=== PATIENT | male | born 1940 | race Caucasian/White ===

== ENCOUNTER 2020-09-10 12:47 | Outpatient (REF) | payer MEDICARE, SELFPAY ==
[2020-09-10 14:35] LABS: Alanine Aminotransferase 12 U/L (0-40); Albumin Level 3.9 g/dL (3.5-5.0); Alkaline Phosphatase 86 U/L (39-117); Anion Gap 14 (12-20); Aspartate Amino Transferase 11 U/L (5-37); Bilirubin Total 0.3 mg/dL (0.0-1.0); Blood Urea Nitrogen 21 mg/dL (9-16); Calcium 8.2 mg/dL (8.4-10.2); Carbon Dioxide 25 mmol/L (22-29); Chloride 108 mmol/L (96-108); Cholesterol 121 mg/dL; Estimated Glomerular Filt Rate > 60; Glucose Fasting 105 mg/dL (60-99); HDL Cholesterol 40 mg/dL; LDL Cholesterol Calculated 60 mg/dl; Potassium 4.6 mmol/l (3.3-5.1); Sodium 142 mmol/L (135-145); Total Protein 6.6 g/dL (6.5-8.0); Triglycerides 109 mg/dL
[2020-09-10 14:44] LABS: TSH reflex Free T4 0.79 mIU/mL (0.32-4.0)
[2020-09-10 14:50] LABS: Creatinine Urine 189.22 mg/dL; Microalbum/Creatinine Ratio Ur 109.9 ug/mg cr
[2020-09-10 15:23] LABS: Vitamin B12 271 pg/mL (200-900)
[2020-09-10 17:42] LABS: Estimated Average Glucose 134 mg/dL; Hemoglobin A1c % 6.3 %
== END 2020-09-10 12:48 | disposition home or self-care (01) ==
LOC: HO.HMGCLDS 12:47
PROVIDERS: PCP Nurse Practitioner Family; Visit Provider Nurse Practitioner Family
DX: E11.9 Type 2 diabetes mellitus without complications (principal); E53.8 Deficiency of other specified B group vitamins; I10 Essential (primary) hypertension
CPT/HCPCS: 80053; 80061; 82043; 82607; 83036; 84443

== ENCOUNTER 2020-12-28 08:39 | Outpatient (REF) | payer MEDICARE, SELFPAY ==
[2020-12-28 11:58] LABS: Alanine Aminotransferase 17 U/L (0-40); Albumin Level 3.9 g/dL (3.5-5.0); Alkaline Phosphatase 85 U/L (39-117); Anion Gap 13 (12-20); Aspartate Amino Transferase 12 U/L (5-37); Bilirubin Total 0.6 mg/dL (0.0-1.0); Blood Urea Nitrogen 23 mg/dL (9-16); Calcium 8.9 mg/dL (8.4-10.2); Carbon Dioxide 29 mmol/L (22-29); Chloride 105 mmol/L (96-108); Cholesterol 133 mg/dL; Estimated Glomerular Filt Rate > 60; Glucose Fasting 121 mg/dL (60-99); HDL Cholesterol 38 mg/dL; LDL Cholesterol Calculated 71 mg/dl; Potassium 5.4 mmol/L (3.3-5.1); Sodium 142 mmol/L (135-145); Total Protein 6.7 g/dL (6.5-8.0); Triglycerides 123 mg/dL
[2020-12-31 15:45] LABS: Vitamin B12 271 pg/mL (200-900)
== END 2020-12-28 08:40 | disposition home or self-care (01) ==
LOC: HO.HMGCLDS 08:39
PROVIDERS: PCP Nurse Practitioner Family; Visit Provider Nurse Practitioner Family
DX: E53.8 Deficiency of other specified B group vitamins (principal); E11.9 Type 2 diabetes mellitus without complications; E87.5 Hyperkalemia
CPT/HCPCS: 36415; 80053; 80061; 82607

== ENCOUNTER → 2021-01-06 13:23 | Outpatient (REF) | payer MEDICARE, SELFPAY ==
--- NOTE | 2021-01-06 13:36 | ECG_ITS ---
Hook-up date: 2021-01-06 13:52:00 Duration: 42:45:00 Test Indications: Persistent Atrial Fibrillation Medications: 19894 QRS complexes 1769 Ventricular ectopics which represent 1 % of total QRS comp. * Supraventricular ectopics which represent % of total QRS comp. * Paced QRS complexs which represent % of total QRS comp. VENTRICULAR ECTOPY 1709 Isolated 0 Bigeminal Cycles 27 Couplets 2 Runs 6 Beats in Runs 3 Beats LONGEST at 105 BPM at 15:35:35 2021-01-06 3 Beats FASTEST at 121 BPM at 09:31:28 2021-01-07 SUPRAVENTRICULAR ECTOPY * Isolated * Couplets * Runs * Beats in Runs * Beats LONGEST at * BPM at :: -- * Beats FASTEST at * BPM at :: -- HEART RATES 38 MIN at 01:05:22 2021-01-07 66 AVG 141 MAX at 14:05:39 2021-01-06 LONGEST RR 2.6240 secs at 01:26:57 2021-01-07 S-T LEVELS Channel 1 - 128 mm at 13:52:00 2021-01-06 - 128 mm at 13:52:00 2021-01-06 Channel 2 - 128 mm at 13:52:00 2021-01-06 - 128 mm at 13:52:00 2021-01-06 Channel 3 - 128 mm at 03:31:11 -- - 128 mm at 03:31:11 Basic rhythm Atrial fibrillation No significant pauses Frequent Premature ventricular complexes Rate is adequately controlled Patient did not report any symptoms in the diary Referred By: Nelson Pineda Overread By: MARIANGEL GARCIA MD
== END ==
LOC: HO.CARD 13:23
PROVIDERS: Visit Provider Internal Medicine
DX: I48.19 Other persistent atrial fibrillation (principal)
CPT/HCPCS: 93225; 93226

== ENCOUNTER → 2021-01-27 10:16 | Outpatient (BNVA) | payer MEDICARE, SELFPAY | PROVIDERS: PCP Nurse Practitioner Family; Visit Provider Nurse Practitioner Family | DX: I48.20 Chronic atrial fibrillation, unspecified (principal); I11.0 Hypertensive heart disease with heart failure; I50.22 Chronic systolic (congestive) heart failure; I25.10 Atherosclerotic heart disease of native coronary artery without angina pectoris; I42.9 Cardiomyopathy, unspecified; I77.810 Thoracic aortic ectasia; Z98.890 Other specified postprocedural states; Z79.899 Other long term (current) drug therapy | CPT/HCPCS: 93005; 99212 ==

== ENCOUNTER 2021-04-13 09:19 | Outpatient (REF) | payer MEDICARE, SELFPAY ==
[2021-04-13 12:18] LABS: Estimated Average Glucose 148 mg/dL; Hemoglobin A1c % 6.8 %
[2021-04-13 12:38] LABS: TSH reflex Free T4 0.92 uIU/mL (0.32-4.0)
[2021-04-13 12:46] LABS: Folate 7.1 ng/mL (> or = 4.0); Vitamin B12 318 pg/mL (200-900)
[2021-04-13 13:13] LABS: Alanine Aminotransferase 12 U/L (0-40); Albumin Level 3.8 g/dL (3.5-5.0); Alkaline Phosphatase 78 U/L (39-117); Anion Gap 13 (12-20); Aspartate Amino Transferase 12 U/L (5-37); Bilirubin Total 0.8 mg/dL (0.0-1.0); Blood Urea Nitrogen 29 mg/dL (9-16); Carbon Dioxide 26 mmol/L (22-29); Chloride 106 mmol/L (96-108); Cholesterol 172 mg/dL; Estimated Glomerular Filt Rate 59; Glucose Fasting 141 mg/dL (60-99); HDL Cholesterol 43 mg/dL; LDL Cholesterol Calculated 106 mg/dl; Potassium 5.9 mmol/L (3.3-5.1); Sodium 139 mmol/L (135-145); Total Protein 6.6 g/dL (6.5-8.0); Triglycerides 115 mg/dL
== END 2021-04-13 09:20 | disposition home or self-care (01) ==
LOC: HO.HMGCLDS 09:19
PROVIDERS: PCP Nurse Practitioner Family; Visit Provider Nurse Practitioner Family
DX: E11.9 Type 2 diabetes mellitus without complications (principal); E53.8 Deficiency of other specified B group vitamins
CPT/HCPCS: 36415; 80053; 80061; 82607; 82746; 83036; 84443

== ENCOUNTER 2021-04-15 09:29 | Outpatient (REF) | payer MEDICARE, SELFPAY ==
[2021-04-15 12:21] LABS: Anion Gap 11 (12-20); Carbon Dioxide 28 mmol/L (22-29); Chloride 105 mmol/L (96-108); Potassium 5.4 mmol/L (3.3-5.1); Sodium 139 mmol/L (135-145)
[2021-04-15 12:41] LABS: Creatinine Urine 51.99 mg/dL; Microalbum/Creatinine Ratio Ur 65.3 ug/mg cr
== END 2021-04-15 09:30 | disposition home or self-care (01) ==
LOC: HO.HMGCLDS 09:29
PROVIDERS: PCP Nurse Practitioner Family; Visit Provider Nurse Practitioner Family
DX: E87.5 Hyperkalemia (principal); E11.9 Type 2 diabetes mellitus without complications; R80.9 Proteinuria, unspecified
CPT/HCPCS: 36415; 80051; 82043

== ENCOUNTER 2021-04-26 08:18 | Outpatient (REF) | payer MEDICARE, SELFPAY ==
[2021-04-26 11:46] LABS: Anion Gap 14 (12-20); Carbon Dioxide 24 mmol/L (22-29); Chloride 108 mmol/L (96-108); Potassium 4.9 mmol/L (3.3-5.1); Sodium 141 mmol/L (135-145)
== END 2021-04-26 08:19 | disposition home or self-care (01) ==
LOC: HO.HMGCLDS 08:18
PROVIDERS: PCP Nurse Practitioner Family; Visit Provider Nurse Practitioner Family
DX: E87.5 Hyperkalemia (principal)
CPT/HCPCS: 36415; 80051

== ENCOUNTER → 2021-07-09 09:11 | Outpatient (REF) | payer MEDICARE, SELFPAY ==
--- NOTE | 2021-07-09 09:14 | CA_ITS ---
Transthoracic Echocardiogram Patient (Last, First, Middle): Dion Cevallos W Gender: Male Date of : 1940 Age: 81 Procedure Date: 07/09/2021 Procedure Type: Transthoracic Echocardiogram Location: OP Height: 182.88 cm Weight: 100.59 kg BSA: 2.23 m2 Heart Rate: bpm Boiler Repairman: PHU Referring MD: Alyce Pryor COMMUNITY RELATIONS SPECIALIST-Marcello Principal Cloud Architect: Dawson Christine MD Symptoms: I42.9 - Cardiomyopathy, unspecified Study Quality: Good ECG Rhythm: Atrial Fibrillation Conclusions: - 1. [id number] LV systolic dysfunction with underlying regional wall motion abnormality suggestive of ischemic cardiomyopathy 2. Mild biatrial enlargement 3. Trace aortic and mild mitral regurgitation 4. Moderately elevated right ventricular systolic pressure 5. Mildly dilated ascending aorta at 4.2 cm 6. No gross pericardial effusion Findings Left Ventricle Normal left ventricular cavity size. There is normal left ventricular wall thickness. The left ventricular systolic function is mild to moderately decreased. The visually estimated ejection fraction is between 40-45%. Elevated filling pressures. Wall Motion Rest Echo Findings The basal inferior, basal inferoseptal, and basal inferolateral segments are akinetic. All other scored wall segments showed normal motion. Right Ventricle Normal right ventricular cavity size. There is borderline right ventricular systolic function. Atria Mild biatrial enlargement. There is no evidence of interatrial shunt. Aortic Valve There is mild calcification of the aortic valve. There is moderate thickening of the aortic valve. There is no aortic valve stenosis. There is trace (trivial) aortic valve regurgitation. Mitral Valve There is mild anterior and posterior mitral leaflet thickening. There is mild mitral valve regurgitation. There is no mitral valve stenosis. Pulmonic Valve The pulmonic valve was not well visualized. Tricuspid Valve Likely normal tricuspid valve structure and function. There is mild tricuspid valve regurgitation. Mildly elevated right atrial pressure. Moderate pulmonary hypertension is present. Great Vessels The pulmonary artery was not well visualized. There is mild dilatation of the ascending aorta measuring 4.20 cm. Venous The inferior vena cava is mildly dilated. Pericardium/Pleural There is no evidence of pericardial effusion. Prior Study Comparison No significant change compared to prior study dated: 07/09/2020. Measurements 2D Linear Measurements IVSd: 0.87 0.6-0.9/0.6-1.0 cm LVIDd: 6.02 3.9-5.3/4.2-5.9 cm LVIDd Index: 2.70 2.4-3.2/2.2-3.1 cm/m2 LVIDs: 4.61 2.0-3.6 cm LVPWd: 0.84 0.7-1.1 cm Ao Root: 3.80 2.1-3.5 cm LA Diam: 4.30 2.7-3.8/3.0-4.0 cm LAIDs Index: 1.93 1.5-2.3 cm/m2 LV Mass: 254.22 67-162/88-224 g LV Mass Index: 114.00 43-95/49-115 g/m2 LVOT Diam: 2.10 3.0+(-)1.3 cm 2D Systolic Function EF 4C: 47.10 >55% EF 2C: 41.70 >55% EF BiP: 44.80 >55% Mitral Valve E'Lateral: 7.40 E'Medial: 5.77 Aortic Valve AoV Pk Felix: 1.22 AoV Mn Felix: 0.91 AoV VTI: 0.23 AoV Pk Grad: 6.00 Aov Mn Grad: 4.00 AGUSTIN Cont.VTI: 2.11 LVOT LVOT Pk Felix: 0.84 LVOT Mn Felix: 0.53 LVOT VTI: 0.14 LVOT Pk Grad: 3.00 LVOT Mn Grad: 1.00 LVOT Diam: 2.10 LVOT Area: 3.46 Diastolic Function E'Medial: 5.77 E' Laterial: 7.40 Right Ventricle TAPSE (mm): 1.75 TVS' Felix: 8.05 Tricuspid Valve TR Pk Felix: 3.31 TR Pk Grad: 44.00 RA Press: 8.00 RVSP: 52.00 Great Vessels Aorta Ao Root-2D: 3.80 2.0-3.7 cm Ao Asc: 4.20 2.1-3.4 cm Updated in Other Vendor System with Status of Final Dawson Christine MD electronically signed on 07/11/2021 12:00:40 PM with status of Final
== END ==
LOC: HO.CARD 09:11
PROVIDERS: PCP Nurse Practitioner Family; Visit Provider Nurse Practitioner Family
DX: I11.0 Hypertensive heart disease with heart failure (principal); I50.22 Chronic systolic (congestive) heart failure; I48.20 Chronic atrial fibrillation, unspecified; I77.810 Thoracic aortic ectasia; I25.10 Atherosclerotic heart disease of native coronary artery without angina pectoris; I42.9 Cardiomyopathy, unspecified
CPT/HCPCS: 93306

== ENCOUNTER → 2021-07-29 10:09 | Outpatient (BNVA) | payer MEDICARE, SELFPAY | PROVIDERS: PCP Nurse Practitioner Family; Referring Provider Nurse Practitioner Family; Visit Provider Internal Medicine | DX: I11.0 Hypertensive heart disease with heart failure (principal); I50.32 Chronic diastolic (congestive) heart failure; I25.10 Atherosclerotic heart disease of native coronary artery without angina pectoris; I48.19 Other persistent atrial fibrillation; E11.8 Type 2 diabetes mellitus with unspecified complications; C61 Malignant neoplasm of prostate | CPT/HCPCS: 99212 ==

== ENCOUNTER 2021-10-13 07:00 | Outpatient (REF) | payer MEDICARE, SELFPAY ==
[2021-10-13 11:40] LABS: Estimated Average Glucose 154 mg/dL
[2021-10-13 11:54] LABS: Alanine Aminotransferase 16 U/L (0-40); Albumin Level 3.7 g/dL (3.5-5.0); Alkaline Phosphatase 74 U/L (39-117); Anion Gap 14 (12-20); Aspartate Amino Transferase 12 U/L (5-37); Bilirubin Total 0.8 mg/dL (0.0-1.0); Blood Urea Nitrogen 29 mg/dL (9-16); Carbon Dioxide 26 mmol/L (22-29); Chloride 107 mmol/L (96-108); Cholesterol 129 mg/dL; Estimated Glomerular Filt Rate 59; Glucose Random 152 mg/dL (60-115); HDL Cholesterol 35 mg/dL; LDL Cholesterol Calculated 72 mg/dl; Potassium 4.3 mmol/L (3.3-5.1); Sodium 143 mmol/L (135-145); Total Protein 6.6 g/dL (6.5-8.0); Triglycerides 113 mg/dL
== END 2021-10-13 07:01 | disposition home or self-care (01) ==
LOC: HO.HMGCLDS 07:00
PROVIDERS: PCP Nurse Practitioner Family; Visit Provider Nurse Practitioner Family
DX: E11.8 Type 2 diabetes mellitus with unspecified complications (principal); E78.5 Hyperlipidemia, unspecified
CPT/HCPCS: 36415; 80053; 80061; 83036

== ENCOUNTER → 2022-01-24 09:43 | Outpatient (BNVA) | payer MEDICARE, SELFPAY | PROVIDERS: PCP Nurse Practitioner Family; Referring Provider Nurse Practitioner Family; Visit Provider Internal Medicine | DX: I48.19 Other persistent atrial fibrillation (principal); I11.0 Hypertensive heart disease with heart failure; I50.32 Chronic diastolic (congestive) heart failure; I25.10 Atherosclerotic heart disease of native coronary artery without angina pectoris; E11.8 Type 2 diabetes mellitus with unspecified complications | CPT/HCPCS: 93005; 99212 ==

== ENCOUNTER 2022-02-04 07:06 | Outpatient (REF) | payer MEDICARE, SELFPAY ==
[2022-02-04 11:39] LABS: Appearance Urine TURBID; Color Urine OTHER; Glucose Urine UA NEG (NEG); Leukocyte Esterase Urine 2+ (NEG); Nitrite Urine NEG (NEG); UACC Culture Trigger YES; Urine Blood 3+ (NEG); Urine Ketones NEG (NEG); Urine Protein 2+ MG/DL (NEG-TRACE)
[2022-02-04 11:49] LABS: Bacteria Urine TRACE /LPF; WBC Urine 30-49 /HPF (0-4)
[2022-02-04 11:51] LABS: Alanine Aminotransferase 14 U/L (0-40); Albumin Level 3.6 g/dL (3.5-5.0); Alkaline Phosphatase 74 U/L (39-117); Anion Gap 13 (12-20); Aspartate Amino Transferase 12 U/L (5-37); Bilirubin Total 0.5 mg/dL (0.0-1.0); Blood Urea Nitrogen 26 mg/dL (9-16); Calcium 9.3 mg/dL (8.4-10.2); Carbon Dioxide 27 mmol/L (22-29); Chloride 109 mmol/L (96-108); Cholesterol 126 mg/dL; Estimated Glomerular Filt Rate 60; Glucose Fasting 176 mg/dL (60-99); HDL Cholesterol 39 mg/dL; LDL Cholesterol Calculated 67 mg/dl; Potassium 5.6 mmol/L (3.3-5.1); Sodium 143 mmol/L (135-145); Total Protein 6.7 g/dL (6.5-8.0); Triglycerides 104 mg/dL
[2022-02-04 12:00] LABS: Estimated Average Glucose 148 mg/dL; Hemoglobin A1c % 6.8 %
[2022-02-04 12:14] LABS: TSH reflex Free T4 1.57 uIU/mL (0.32-4.0)
[2022-02-04 12:28] LABS: Folate 6.9 ng/mL (> or = 4.0); Vitamin B12 294 pg/mL (200-900)
== END 2022-02-04 07:07 | disposition home or self-care (01) ==
LOC: HO.HMGCLDS 07:06
PROVIDERS: Visit Provider Nurse Practitioner Family
DX: E11.8 Type 2 diabetes mellitus with unspecified complications (principal); E53.8 Deficiency of other specified B group vitamins
CPT/HCPCS: 36415; 80053; 80061; 81001; 82607; 82746; 83036; 84443; 87086

== ENCOUNTER 2022-02-08 09:07 | Outpatient (REF) | payer MEDICARE, SELFPAY ==
[2022-02-08 11:40] LABS: Appearance Urine CLOUDY; Color Urine YELLOW; Glucose Urine UA NEG (NEG); Leukocyte Esterase Urine 3+ (NEG); Nitrite Urine NEG (NEG); PH 6.5 (5.0-8.0); UACC Culture Trigger YES; Urine Blood 3+ (NEG); Urine Ketones NEG (NEG); Urine Protein 1+ MG/DL (NEG-TRACE)
[2022-02-08 11:51] LABS: WBC Urine TNTC /HPF (0-4)
[2022-02-08 11:52] LABS: Amorphous Sediment Urine 1+ /LPF; Bacteria Urine TRACE /LPF; Squamous Epithelial Cell Urine TRACE /LPF
[2022-02-08 11:53] LABS: Anion Gap 13 (12-20); Carbon Dioxide 27 mmol/L (22-29); Chloride 107 mmol/L (96-108); Potassium 5.8 mmol/L (3.3-5.1); Sodium 141 mmol/L (135-145)
== END 2022-02-08 09:08 | disposition home or self-care (01) ==
LOC: HO.HMGCLDS 09:07
PROVIDERS: Visit Provider Nurse Practitioner Family
DX: E87.5 Hyperkalemia (principal)
CPT/HCPCS: 36415; 80051; 81001; 87086

== ENCOUNTER 2022-02-10 07:14 | Outpatient (REF) | payer MEDICARE, SELFPAY ==
[2022-02-10 11:34] LABS: Appearance Urine CLOUDY; Color Urine YELLOW; Glucose Urine UA NEG (NEG); Leukocyte Esterase Urine 3+ (NEG); Nitrite Urine NEG (NEG); UACC Culture Trigger YES; Urine Blood 3+ (NEG); Urine Ketones NEG (NEG); Urine Protein 2+ MG/DL (NEG-TRACE)
[2022-02-10 11:36] LABS: Anion Gap 13 (12-20); Carbon Dioxide 26 mmol/L (22-29); Chloride 105 mmol/L (96-108); Potassium 4.3 mmol/L (3.3-5.1); Sodium 140 mmol/L (135-145)
[2022-02-10 11:51] LABS: RBC Urine TNTC /HPF (0); WBC Urine TNTC /HPF (0-4)
[2022-02-10 11:52] LABS: Bacteria Urine 2+ /LPF; Mucus Urine 2+ /LPF; Squamous Epithelial Cell Urine 1+ /LPF
== END 2022-02-10 07:15 | disposition home or self-care (01) ==
LOC: HO.HMGCLDS 07:14
PROVIDERS: PCP Nurse Practitioner Family; Visit Provider Nurse Practitioner Family
DX: E87.5 Hyperkalemia (principal)
CPT/HCPCS: 36415; 80051; 81001

== ENCOUNTER 2022-03-22 13:26 | Outpatient (REF) | payer MEDICARE, SELFPAY ==
[2022-03-22 14:17] LABS: Appearance Urine CLOUDY; Color Urine YELLOW; Glucose Urine UA NEG (NEG); Leukocyte Esterase Urine 3+ (NEG); Nitrite Urine NEG (NEG); PH 5.5 (5.0-8.0); Specific Gravity - Urine 1.025 (1.005-1.025); Urine Blood 3+ (NEG); Urine Ketones NEG (NEG); Urine Protein 2+ MG/DL (NEG-TRACE)
[2022-03-22 14:25] LABS: RBC Urine TNTC /HPF (0); Squamous Epithelial Cell Urine TRACE /LPF; WBC Urine TNTC /HPF (0-4)
== END 2022-03-22 13:27 | disposition home or self-care (01) ==
LOC: HO.HMGCLDS 13:26
PROVIDERS: PCP Nurse Practitioner Family; Visit Provider Physician Assistant Surgical
DX: N39.0 Urinary tract infection, site not specified (principal)
CPT/HCPCS: 81001; 87086

== ENCOUNTER 2022-03-30 06:37 | Outpatient (REF) | payer MEDICARE, SELFPAY ==
[2022-03-30 11:43] LABS: Appearance Urine CLOUDY; Color Urine YELLOW; Glucose Urine UA NEG (NEG); Leukocyte Esterase Urine 3+ (NEG); Nitrite Urine NEG (NEG); Urine Blood 3+ (NEG); Urine Ketones NEG (NEG); Urine Protein 2+ MG/DL (NEG-TRACE)
[2022-03-30 12:00] LABS: WBC Urine TNTC /HPF (0-4)
[2022-03-30 12:07] LABS: WBC Clumps Urine NOTED
== END 2022-03-30 06:38 | disposition home or self-care (01) ==
LOC: HO.HMGCLDS 06:37
PROVIDERS: PCP Nurse Practitioner Family; Visit Provider Urology
DX: N39.0 Urinary tract infection, site not specified (principal)
CPT/HCPCS: 81001; 87086

== ENCOUNTER 2022-04-22 08:13 | Outpatient (REF) | payer MEDICARE, SELFPAY ==
[2022-04-22 11:31] LABS: Appearance Urine CLOUDY; Color Urine YELLOW; Glucose Urine UA NEG (NEG); Leukocyte Esterase Urine 3+ (NEG); Nitrite Urine NEG (NEG); PH 5.5 (5.0-8.0); UACC Culture Trigger YES; Urine Blood 3+ (NEG); Urine Ketones NEG (NEG); Urine Protein 1+ MG/DL (NEG-TRACE)
[2022-04-22 11:39] LABS: Anion Gap 13 (12-20); Carbon Dioxide 26 mmol/L (22-29); Chloride 108 mmol/L (96-108); Potassium 4.8 mmol/L (3.3-5.1); Sodium 142 mmol/L (135-145)
[2022-04-22 12:03] LABS: Bacteria Urine 2+ /LPF; RBC Urine TNTC /HPF (0); Squamous Epithelial Cell Urine TRACE /LPF; WBC Clumps Urine NOTED; WBC Urine TNTC /HPF (0-4)
== END 2022-04-22 08:14 | disposition home or self-care (01) ==
LOC: HO.HMGCLNP 08:13
PROVIDERS: PCP Nurse Practitioner Family; Visit Provider Nurse Practitioner Family
DX: E87.5 Hyperkalemia (principal); N39.0 Urinary tract infection, site not specified
CPT/HCPCS: 80051; 81001; 87086

== ENCOUNTER 2022-07-22 06:55 | Outpatient (REF) | payer MEDICARE, SELFPAY ==
[2022-07-22 11:24] LABS: MANUAL DIFF FLAG NO
[2022-07-22 11:28] LABS: Basophils Absolute Auto 0.1 X10*3/uL (0.0-0.2); Basophils Percent Auto 0.8 % (0-2); Eosinophils Absolute Auto 0.1 X10*3/uL (0.0-0.4); Eosinophils Percent Auto 1.7 % (0-4); Hematocrit 39.9 % (42.0-52.0); Hemoglobin 12.4 g/dl (14.0-18.0); Imm Gran Abs Auto 0.01 X10*3/uL (0.00-0.03); Imm Gran Pct Auto 0.2 % (0.0-0.4); Lymphocytes Percent Auto 30.7 % (20-40); Mean Corpuscular HGB Conc 31.1 g/dl (31.0-36.0); Mean Corpuscular Hemoglobin 28.9 pg (27.0-33.0); Monocytes Absolute Auto 0.7 X10*3/uL (0.1-1.2); Neutrophils Absolute Auto 3.7 x10*3/uL (2.0-8.3); Neutrophils Percent Auto 56.6 % (45-73); Platelet Count 250 X10*3/uL (160-400); Red Blood Count 4.29 X10*6/uL (4.60-5.80); Red Cell Distribution Width 14.2 % (11.0-16.0); White Blood Count 6.5 X10*3/uL (4.8-10.8)
[2022-07-22 11:33] LABS: Appearance Urine Turbid; Color Urine Yellow; Glucose Urine UA Negative (Negative); Leukocyte Esterase Urine Large (3+) (Negative); Nitrite Urine Positive (Negative); PH 5.5 (5.0-9.0); Specific Gravity - Urine 1.015 (1.005-1.025); UMIC TRIGGER UACC YES; Urine Blood Moderate (2+) (Negative); Urine Ketones Negative (Negative); Urine Protein 30 (1+) mg/dL (Neg-Trace)
[2022-07-22 11:39] LABS: Estimated Average Glucose 148 mg/dL; Hemoglobin A1c % 6.8 %
[2022-07-22 11:45] LABS: Bacteria Urine None Seen (None Seen); Hyaline Casts Urine 0-2 /LPF (0-2); RBC Urine >20 /HPF (0-2); Squamous Epithelial Cell Urine 0-2 /HPF (0-2); UACC Culture Trigger YES; WBC Urine >50 /HPF (0-5)
[2022-07-22 11:59] LABS: Alanine Aminotransferase 9 U/L (0-40); Albumin Level 3.6 g/dL (3.5-5.0); Alkaline Phosphatase 85 U/L (39-117); Anion Gap 16 (12-20); Aspartate Amino Transferase 9 U/L (5-37); Bilirubin Total 0.7 mg/dL (0.0-1.0); Blood Urea Nitrogen 31 mg/dL (9-16); Carbon Dioxide 27 mmol/L (22-29); Chloride 103 mmol/L (96-108); Cholesterol 123 mg/dL; Estimated Glomerular Filt Rate 57; Glucose Fasting 167 mg/dL (60-99); HDL Cholesterol 33 mg/dL; LDL Cholesterol Calculated 71 mg/dl; Potassium 4.4 mmol/L (3.3-5.1); Sodium 142 mmol/L (135-145); Total Protein 6.8 g/dL (6.5-8.0); Triglycerides 96 mg/dL
[2022-07-22 12:03] LABS: TSH reflex Free T4 0.98 uIU/mL (0.32-4.0)
[2022-07-22 12:07] LABS: Creatinine Urine 137.61 mg/dL; Microalbum/Creatinine Ratio Ur 149.6 ug/mg cr
== END 2022-07-22 06:56 | disposition home or self-care (01) ==
LOC: HO.HMGCLDS 06:55
PROVIDERS: PCP Nurse Practitioner Family; Visit Provider Nurse Practitioner Family
DX: E11.8 Type 2 diabetes mellitus with unspecified complications (principal); E87.5 Hyperkalemia
CPT/HCPCS: 36415; 80053; 80061; 81001; 82043; 83036; 84443; 85025; 87086; 87088; 87186

== ENCOUNTER → 2022-08-02 10:01 | Outpatient (BNVA) | payer MEDICARE, SELFPAY | PROVIDERS: PCP Nurse Practitioner Family; Referring Provider Nurse Practitioner Family; Visit Provider Internal Medicine | DX: I48.19 Other persistent atrial fibrillation (principal); I25.10 Atherosclerotic heart disease of native coronary artery without angina pectoris; I11.0 Hypertensive heart disease with heart failure; I50.32 Chronic diastolic (congestive) heart failure; E11.8 Type 2 diabetes mellitus with unspecified complications; Z79.01 Long term (current) use of anticoagulants; Z79.84 Long term (current) use of oral hypoglycemic drugs; Z79.899 Other long term (current) drug therapy | CPT/HCPCS: 99212 ==

== ENCOUNTER 2022-10-19 06:56 | Outpatient (REF) | payer MEDICARE, SELFPAY ==
[2022-10-19 14:47] LABS: Alanine Aminotransferase 11 U/L (0-40); Albumin Level 3.5 g/dL (3.5-5.0); Alkaline Phosphatase 90 U/L (39-117); Anion Gap 12 (12-20); Aspartate Amino Transferase 9 U/L (5-37); Bilirubin Total 0.6 mg/dL (0.0-1.0); Blood Urea Nitrogen 23 mg/dL (9-16); Calcium 8.8 mg/dL (8.4-10.2); Carbon Dioxide 28 mmol/L (22-29); Chloride 109 mmol/L (96-108); Estimated Glomerular Filt Rate > 60; Glucose Random 150 mg/dL (60-115); Potassium 4.6 mmol/L (3.3-5.1); Sodium 144 mmol/L (135-145); Total Protein 6.2 g/dL (6.5-8.0)
== END 2022-10-19 06:57 | disposition home or self-care (01) ==
LOC: HO.HMGCLDS 06:56
PROVIDERS: PCP Nurse Practitioner Family; Visit Provider Nurse Practitioner Family
DX: E87.5 Hyperkalemia (principal)
CPT/HCPCS: 36415; 80053

== ENCOUNTER → 2023-02-14 09:52 | Outpatient (BNVA) | payer MEDICARE, SELFPAY | PROVIDERS: PCP Nurse Practitioner Family; Referring Provider Nurse Practitioner Family; Visit Provider Internal Medicine | DX: I50.32 Chronic diastolic (congestive) heart failure (principal); I25.10 Atherosclerotic heart disease of native coronary artery without angina pectoris; I10 Essential (primary) hypertension; I48.19 Other persistent atrial fibrillation; I49.3 Ventricular premature depolarization; E11.8 Type 2 diabetes mellitus with unspecified complications; Z98.890 Other specified postprocedural states | CPT/HCPCS: 93005; 99212 ==

== ENCOUNTER 2023-04-19 06:57 | Outpatient (REF) | payer MEDICARE, SELFPAY ==
[2023-04-19 11:22] LABS: MANUAL DIFF FLAG NO
[2023-04-19 11:38] LABS: Basophils Percent Auto 0.6 % (0-2); Eosinophils Absolute Auto 0.2 X10*3/uL (0.0-0.4); Hematocrit 38.2 % (42.0-52.0); Hemoglobin 11.8 g/dl (14.0-18.0); Imm Gran Abs Auto 0.02 X10*3/uL (0.00-0.03); Imm Gran Pct Auto 0.3 % (0.0-0.4); Lymphocytes Absolute Auto 2.3 X10*3/uL (1.2-4.9); Lymphocytes Percent Auto 36.3 % (20-40); Mean Corpuscular HGB Conc 30.9 g/dl (31.0-36.0); Mean Corpuscular Hemoglobin 28.9 pg (27.0-33.0); Mean Corpuscular Volume 93.6 fL (80.0-98.0); Monocytes Absolute Auto 0.5 X10*3/uL (0.1-1.2); Monocytes Percent Auto 8.1 % (2-11); Neutrophils Absolute Auto 3.3 x10*3/uL (2.0-8.3); Neutrophils Percent Auto 51.7 % (45-73); Platelet Count 226 X10*3/uL (160-400); Red Blood Count 4.08 X10*6/uL (4.60-5.80); Red Cell Distribution Width 13.5 % (11.0-16.0); White Blood Count 6.4 X10*3/uL (4.8-10.8)
[2023-04-19 12:08] LABS: Appearance Urine Turbid; Color Urine Orange; Glucose Urine UA Negative (Negative); Leukocyte Esterase Urine Large (3+) (Negative); Nitrite Urine Negative (Negative); PH 5.5 (5.0-9.0); Specific Gravity - Urine 1.015 (1.005-1.025); UMIC TRIGGER UACC YES; Urine Blood Large (3+) (Negative); Urine Ketones Negative (Negative); Urine Protein 100 (2+) mg/dL (Neg-Trace)
[2023-04-19 12:13] LABS: Bacteria Urine None Seen (None Seen); Hyaline Casts Urine 0-2 /LPF (0-2); RBC Urine >20 /HPF (0-2); Squamous Epithelial Cell Urine 0-2 /HPF (0-2); UACC Culture Trigger YES; WBC Urine >50 /HPF (0-5)
[2023-04-19 12:18] LABS: Alanine Aminotransferase 10 U/L (0-40); Albumin Level 3.4 g/dL (3.5-5.0); Alkaline Phosphatase 92 U/L (39-117); Anion Gap 11 (12-20); Aspartate Amino Transferase 12 U/L (5-37); Bilirubin Total 0.7 mg/dL (0.0-1.0); Blood Urea Nitrogen 26 mg/dL (9-16); Calcium 9.3 mg/dL (8.4-10.2); Carbon Dioxide 28 mmol/L (22-29); Chloride 108 mmol/L (96-108); Cholesterol 125 mg/dL; Estimated Glomerular Filt Rate 56; Glucose Fasting 136 mg/dL (60-99); HDL Cholesterol 36 mg/dL; LDL Cholesterol Calculated 75 mg/dl; Potassium 4.6 mmol/L (3.3-5.1); Sodium 142 mmol/L (135-145); TSH reflex Free T4 1.45 uIU/mL (0.32-4.0); Total Protein 6.9 g/dL (6.5-8.0); Triglycerides 72 mg/dL
[2023-04-19 12:21] LABS: Vitamin B12 264 pg/mL (200-900)
== END 2023-04-19 06:58 | disposition home or self-care (01) ==
LOC: HO.HMGCLDS 06:57
PROVIDERS: PCP Nurse Practitioner Family; Visit Provider Nurse Practitioner Family
DX: Z00.00 Encounter for general adult medical examination without abnormal findings (principal); E53.8 Deficiency of other specified B group vitamins; R82.90 Unspecified abnormal findings in urine; E11.9 Type 2 diabetes mellitus without complications; I10 Essential (primary) hypertension
CPT/HCPCS: 36415; 80053; 80061; 81001; 81003; 82607; 82746; 84443; 85025; 87086

== ENCOUNTER 2023-07-20 13:20 | Outpatient (AMB) | payer MEDICARE, SELFPAY ==
--- NOTE | 2023-07-20 13:23 | MHC.PC.OV ---
Vital Signs 07/20/23 13:27 Height 5 ft 10 in Weight 209 lb BMI 30.0 BP 118/70 Blood Pressure Location Rt brachial Position Sitting Pulse 92 Pulse Source Pulse Oximeter Pulse Oximetry (%) 97 Oxygen Delivery Method Room Air Intake Visit Reasons: 3 month follow up Allergies Penicillins [PENICILLINS] Allergy (Mild, Verified 07/20/23 13:27) RASH tetanus and diphtheria toxoids [TETANUS & DIPHTHERIA TOXOIDS] Allergy (Mild, Verified 07/20/23 13:27) UNKNOWN ranitidine [Zantac] Allergy (Unknown, Verified 07/20/23 13:27) hives Tobacco use date assessed: 04/18/23 Fall risk assessment: 1 Fall in past year Last assessed Fall Risk: 07/20/23 HPI 3 month follow up HPI Details Pt is a diabetic, on an KIKI and a statin. A1C in office today is 6.6. Due for microalbumin, will order. Denies polyuria, polydipsia, does report neuropathy. Pt denies any signs and symptoms of hypoglycemia and does know how to correct it. Eye exam is scheduled. HTN: Blood pressure is stable, managed with furosemide 20mg, lisinopril 5mg, and metoprolol 100mg in the morning and 50mg at night. Denies chest pain, shortness of breath, headache, dizziness, and blurred vision. 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 Chronic systolic heart failure Ascending aorta dilatation Cardiomyopathy Microalbuminuria CAD (coronary artery disease) Chronic a-fib Atherosclerosis Depression Ureteral calculi CHF (congestive heart failure) Prostate CA Tremor Aneurysm of thoracic aorta Dyslipidemia Pulmonary embolism Diabetes HTN (hypertension) Surgical History Hx of cardiac cath History of rhinoplasty Family History Father Unknown family medical history Mother Unknown family medical history Sister Mental health disorder Social History Housing: House Alcohol intake: never Patient Tobacco Use Status: Former Tobacco user Years Smoked: 30 years ago e-Cigarette/Vaping Use: Never Used Second Hand Smoke Exposure: No service: No Current occupational status: retired Current occupational exposures/hazards: No Cognitive needs: No Hearing needs: No Vision needs: Yes Questionnaire Thrive Questionnaire Date Thrive assessed: 10/14/21 ALICIA-7 AMB Questionnaire ALICIA-7 Date ALICIA - 7 assessed: 10/14/21 Source: Developed by Drs. Vj Oliva, Claire Lozano, Alex Amaro and colleagues, with an educational marc from [employer]. Review of Systems Const Reports as per HPI Physical exam (Primary Care) Vital Signs: Last Vital Signs Pulse 92 07/20/23 13:27 BP 118/70 07/20/23 13:27 Pulse Ox 97 07/20/23 13:27 Oxygen Delivery Method Room Air 07/20/23 13:27 BMI result Body Mass Index 30.0 Tobacco/Smoking Status: Tobacco use Status Tobacco use date assessed 04/18/23 07/20/23 13:26 Patient Tobacco Use Status Former Tobacco user 07/20/23 13:26 e-Cigarette/Vaping Use Never Used 07/20/23 13:26 Thrive Assessment: Date of Thrive Assessment Date Thrive assessed 10/14/21 07/20/23 13:26 Const General: cooperative Orientation/consciousness: patient oriented x3 Resp Effort & Inspection: normal respiratory effort Auscultation: clear to auscultation bilaterally Cardio Rate: regular rate Rhythm: abnormal rhythm irregularly irregular Heart sounds: S1 normal heart sound present and S2 normal heart sound present Neuro General: patient oriented x3 Extrem Other: bilat feet: + sensation with use of monofilament Right lower extremity: edema (trace) Left lower extremity: edema (trace) Psych Appearance: grossly normal Mental Status: mental status grossly normal Speech and movement: Normal speech and movement present Affect: normal affect Attitude: cooperative Thought process: Normal thought process present Thought content: Normal thought content present Insight: Good insight present (Psych) Judgement: Good judgement present (Psych) Results AMB Hemoglobin A1c AMB Hemoglobin A1c 6.6 % Last Edit by ZOILA Mendiola on 07/20/23 13:54 Results Reviewed Results Reviewed: Laboratory Last Values Hgb A1c (Clinic) 6.6 % (4.0-6.0) H 07/20/23 13:53 Assessment and Plan Assessment & Plan (1) Diabetes: Code(s): E11.9 - Type 2 diabetes mellitus without complications Plan: Labs ordered (2) HTN (hypertension): Code(s): I10 - Essential (primary) hypertension Plan: Labs ordered (3) B12 deficiency: Code(s): E53.8 - Deficiency of other specified B group vitamins Plan: Labs ordered Plan The patient agreed to the use of a biomedical specialist for this encounter. Scribed for ISA Palacio-CHONG by Nicole Bunch biomedical specialist, on 07/20/2023 at 13:45 EST. Orders: Orders Microalbumin, Random (w Creat) Today E11.9 - Type 2 diabetes mellitus without complications Complete Blood Count Auto Diff Today E11.9 - Type 2 diabetes mellitus without complications, I10 - Essential (primary) hypertension TSH reflex Free T4 Today E11.9 - Type 2 diabetes mellitus without complications, I10 - Essential (primary) hypertension Vitamin B12 and Folate Today E53.8 - Deficiency of other specified B group vitamins Comprehensive [place]. Panel Fast Today E11.9 - Type 2 diabetes mellitus without complications, I10 - Essential (primary) hypertension Lipid Panel Today E11.9 - Type 2 diabetes mellitus without complications, I10 - Essential (primary) hypertension UA CC w/rflx Micro + Cult Today E11.9 - Type 2 diabetes mellitus without complications, I10 - Essential (primary) hypertension AMB Hemoglobin A1c Today Z13.9 - Encounter for screening, unspecified Coding Level of Care Code Est Pt Level 3 (04043) Diagnoses Diabetes E11.9 HTN (hypertension) I10 B12 deficiency E53.8
[2023-07-20 13:27] VITALS: BP 118/70; PULSE 92; O2SAT 97
== END 2023-07-20 14:09 | disposition home or self-care (01) ==
PROVIDERS: PCP Nurse Practitioner Family; Visit Provider Nurse Practitioner Family
DX: E11.9 Type 2 diabetes mellitus without complications (principal); I10 Essential (primary) hypertension; E53.8 Deficiency of other specified B group vitamins
CPT/HCPCS: 83036; 99213

== ENCOUNTER → 2023-07-26 09:00 | Outpatient (REF) | payer MEDICARE, SELFPAY ==
--- NOTE | 2023-07-26 09:04 | CA_ITS ---
Transthoracic Echocardiogram Patient (Last, First, Middle): Dion Cevallos W Gender: Male Date of : 1940 Age: 83 Procedure Date: 07/26/2023 Procedure Type: Transthoracic Echocardiogram Location: OP Height: 180.34 cm Weight: 92.99 kg BSA: 2.13 m2 Heart Rate: bpm BP: 110 / 60 mmHg Veterinary Radiologist: TO Referring MD: Nelson Pineda MD Symptoms: I50.32 - Chronic diastolic (congestive) heart failure Study Quality: Fair ECG Rhythm: Atrial Fibrillation Conclusions: - The left ventricular systolic function is mild to moderately decreased. The calculated ejection fraction is 42% by biplane method. - The basal inferior and basal inferolateral segments are akinetic. - No obvious valvular pathology seen on this study. - Moderate pulmonary hypertension is present. - There is mild dilatation of the ascending aorta measuring 4.30 cm. Findings Left Ventricle Mildly increased left ventricular cavity size. There is normal left ventricular wall thickness. The left ventricular systolic function is mild to moderately decreased. The calculated ejection fraction is 42% by biplane method. There is evidence of regional wall motion abnormalities. Diastolic function is indeterminate on the basis of available data. Wall Motion Rest Echo Findings The basal inferior and basal inferolateral segments are akinetic. Right Ventricle Normal right ventricular cavity size. There is mildly decreased right ventricular systolic function. Atria Mild biatrial enlargement. Aortic Valve There is a normal trileaflet aortic valve. There is mild calcification of the aortic valve. There is no aortic valve stenosis. There is trace (trivial) aortic valve regurgitation. Mitral Valve The mitral valve appears normal. There is mild mitral valve regurgitation. There is no mitral valve stenosis. Pulmonic Valve The pulmonic valve is likely normal. Tricuspid Valve Normal tricuspid valve structure. There is mild tricuspid valve regurgitation. Moderate pulmonary hypertension is present. Great Vessels There is mild dilatation of the ascending aorta measuring 4.30 cm. Venous The inferior vena cava is dilated and collapses less than 50% with inspiration. Pericardium/Pleural There is a trivial pericardial effusion. Prior Study Comparison No significant change compared to prior study dated: 07/09/2021. Recommendations, Care & Conclusions No obvious valvular pathology seen on this study. Measurements 2D Linear Measurements IVSd: 0.80 0.6-0.9/0.6-1.0 cm LVIDd: 6.00 3.9-5.3/4.2-5.9 cm LVIDd Index: 2.82 2.4-3.2/2.2-3.1 cm/m2 LVIDs: 5.10 2.0-3.6 cm LVPWd: 0.90 0.7-1.1 cm LA Diam: 4.10 2.7-3.8/3.0-4.0 cm LAIDs Index: 1.92 1.5-2.3 cm/m2 LV Mass: 250.15 67-162/88-224 g LV Mass Index: 117.44 43-95/49-115 g/m2 LVOT Diam: 2.30 3.0+(-)1.3 cm 2D Systolic Function EF 4C: 44.50 >55% EF 2C: 40.80 >55% EF BiP: 42.10 >55% Mitral Valve MV Pk E: 0.86 MV Decel Time: 155.00 E'Lateral: 6.53 E'Medial: 5.11 E/E' Med: 16.80 E/E' Lat: 13.20 PHT: 45.00 MVA PHT: 4.89 Decel [place]: 5.55 Aortic Valve AoV Pk Felix: 1.27 AoV Mn Felix: 0.91 AoV VTI: 0.26 AoV Pk Grad: 6.00 Aov Mn Grad: 4.00 AGUSTIN Cont.VTI: 1.82 LVOT LVOT Pk Felix: 0.52 LVOT Mn Felix: 0.36 LVOT VTI: 0.11 LVOT Pk Grad: 1.00 LVOT Mn Grad: 1.00 LVOT Diam: 2.30 LVOT Area: 4.15 Diastolic Function MV Pk E: 0.86 E'Medial: 5.11 E/E' Med: 16.80 E' Laterial: 6.53 E/E' Lat: 13.20 Right Ventricle TAPSE (mm): 12.60 TVS' Felix: 7.22 Tricuspid Valve TR Pk Felix: 3.42 TR Pk Grad: 47.00 RA Press: 15.00 RVSP: 62.00 Great Vessels Aorta Sinus of Valsalva: 3.70 2.0-3.[address] [place]: 3.10 1.7-3.4 cm Ao Asc: 4.30 2.1-3.4 cm Ao Arch: 3.60 Updated in Other Vendor System with Status of Final Nelson Pineda MD electronically signed on 07/27/2023 11:25:48 AM with status of Final
== END ==
LOC: HO.CARD 09:00
PROVIDERS: PCP Nurse Practitioner Family; Visit Provider Internal Medicine
DX: I50.32 Chronic diastolic (congestive) heart failure (principal)
CPT/HCPCS: 93306

== ENCOUNTER → 2023-07-26 09:04 | Outpatient (BNV) | payer MEDICARE, SELFPAY | PROVIDERS: PCP Nurse Practitioner Family; Visit Provider Internal Medicine | DX: I34.0 Nonrheumatic mitral (valve) insufficiency (principal); I36.1 Nonrheumatic tricuspid (valve) insufficiency | CPT/HCPCS: 93306 ==

== ENCOUNTER 2023-08-14 11:55 | Outpatient (AMB) | payer MEDICARE, SELFPAY ==
[2023-08-14 13:51] VITALS: BP 112/66; PULSE 68; O2SAT 97; BMI 30.4
--- NOTE | 2023-08-14 13:51 | MHC.OFFWIV ---
Intake Vital Signs 08/14/23 13:51 Height 5 ft 10 in Weight 212 lb BMI 30.4 BP 112/66 Blood Pressure Location Rt brachial Position Sitting Pulse 68 Pulse Source Pulse Oximeter Pulse Oximetry (%) 97 Oxygen Delivery Method Room Air Intake Visit Reasons: EP Cough, Runny nose (masked) Lobby Intake Note: Pt is here today for a walk in visit. Pt c/o cough congestion a lot of mucus for a week. Patient Tobacco Use Status: Former Tobacco user Allergies Penicillins [PENICILLINS] Allergy (Mild, Verified 08/14/23 14:31) RASH tetanus and diphtheria toxoids [TETANUS & DIPHTHERIA TOXOIDS] Allergy (Mild, Verified 08/14/23 14:31) UNKNOWN ranitidine [Zantac] Allergy (Unknown, Verified 08/14/23 14:31) hives Medication List - Last Reconciled 08/14/23 by Hayden Donahue MD apixaban (Eliquis) 5 mg PO BID atorvastatin 40 mg PO DAILY blood sugar diagnostic (OneTouch Ultra Test strips) test blood sugar daily blood sugar diagnostic (OneTouch Ultra Test strips) Use to check blood sugar once a day or as needed for s/s hypo/hyperglycemia blood-glucose meter (AlticastTouch Ultra2 Meter) Use to check blood sugar once a day or as needed for s/s hypo/hyperglycemia cyanocobalamin (vitamin B-12) (Vitamin B-12) 1,000 mcg PO DAILY PRN diabetic supplies, [place]. Diabetic Shoes DX: E11.9, E11.59 [extra depth Orthopedic shoes (1 pair) wt customized Heat-molded Multi-density Innersoles (3 Pairs) As directed] furosemide 20 mg PO DAILY lancets (AlticastTouch Delica Plus Lancet) Use to check blood sugar once a day or as needed for s/s hypo/hyperglycemia lancets (AlticastTouch UltraSoft Lancets) Check sugar once a day lisinopril 5 mg PO DAILY lorazepam (Ativan) 0.5 mg (1/2 x 1 mg) PO DAILY PRN 5 days metformin 500 mg PO .PM 90 days metformin 1,000 mg PO .AM 90 days metoprolol succinate ER 50 mg PO .P.M 90 days metoprolol succinate ER 100 mg PO .am 90 days sertraline 25 mg PO DAILY 90 days tamsulosin 0.4 mg PO QPM HPI EP Cough, Runny nose (masked) Lobby HPI Details 83-year-old male presents to the office for a sick visit. His daughter is accompanying him on this visit. Patient is complaining of cough in the last week. Spasmodic cough with shortness of breath. No fevers or chills. 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 Chronic systolic heart failure Ascending aorta dilatation Cardiomyopathy Microalbuminuria CAD (coronary artery disease) Chronic a-fib Atherosclerosis Depression Ureteral calculi CHF (congestive heart failure) Prostate CA Tremor Aneurysm of thoracic aorta Dyslipidemia Pulmonary embolism Diabetes HTN (hypertension) Surgical History Hx of cardiac cath History of rhinoplasty Family History Father Unknown family medical history Mother Unknown family medical history Sister Mental health disorder Social History Housing: House Alcohol intake: never Patient Tobacco Use Status: Former Tobacco user Years Smoked: 30 years ago e-Cigarette/Vaping Use: Never Used Second Hand Smoke Exposure: No service: No Current occupational status: retired Current occupational exposures/hazards: No Cognitive needs: No Hearing needs: No Vision needs: Yes Physical Exam Vital Signs: Last Vital Signs Pulse 68 08/14/23 13:51 BP 112/66 08/14/23 13:51 Pulse Ox 97 08/14/23 13:51 Oxygen Delivery Method Room Air 08/14/23 13:51 BMI result Body Mass Index 30.4 Const General: cooperative and healthy appearing Nutritional Appearance: well nourished Orientation/consciousness: patient oriented x3 Limitations: no limitations HEENT Head: Yes normal to inspection Eyes General: appearance normal, both eyes and all related structures Neck Neck: Yes normal visual inspection Chest Chest palpation & inspection: normal palpation of entire chest wall Resp Other: Diminished breath sounds bilaterally. Effort & Inspection: normal respiratory effort Neuro General: patient oriented x3 Assessment & Plan Assessment & Plan (1) Pneumonia: Code(s): J18.9 - Pneumonia, unspecified organism Plan: Possible right lower lobe infiltrate. Cough medication and antibiotic called in. If symptoms do not improve to follow-up here. Plan X-ray images personally reviewed by me Orders: Orders XR chest 2V Today R05.9 - Cough, unspecified Medications: New prednisone 60 mg (3 x 20 mg) PO DAILY 9 tabs 0RF codeine-guaifenesin 10-100 mg/5 mL 5 mL PO Q6H PRN 120 mL 0RF allergy symptoms azithromycin take 500 mg today (day 1), then 250 mg for 4 days (days 2-5) PO 6 tabs 0RF Coding Level of Care Code Est Pt Level 4 (31568) Diagnoses Pneumonia J18.9
== END 2023-08-14 15:07 | disposition home or self-care (01) ==
PROVIDERS: PCP Nurse Practitioner Family; Visit Provider Internal Medicine
DX: J18.9 Pneumonia, unspecified organism (principal)
CPT/HCPCS: 99214

== ENCOUNTER 2023-08-14 14:31 | Outpatient (REF) | payer MEDICARE, SELFPAY | END 2023-08-14 14:32 | disposition home or self-care (01) | LOC: HO.HMGCX 14:31 | PROVIDERS: PCP Nurse Practitioner Family; Visit Provider Internal Medicine | DX: R05.9 Cough, unspecified (principal) | CPT/HCPCS: 71046 ==

== ENCOUNTER 2023-08-22 12:05 | Outpatient (AMB) | payer MEDICARE, SELFPAY ==
[2023-08-22 13:05] VITALS: BP 110/70; PULSE 80; TEMP 36.6; O2SAT 97; BMI 30.4
--- NOTE | 2023-08-22 13:05 | AM.OFFWIN_ITS ---
Intake Vital Signs 08/22/23 13:05 Height 5 ft 10 in Weight 212 lb BMI 30.4 BP 110/70 Blood Pressure Location Lt brachial Position Sitting Pulse 80 Pulse Source Pulse Oximeter Temp 97.9 F Temp Source Temporal Artery Scan Pulse Oximetry (%) 97 Intake Visit Reasons: EP, cough, congestion (masked) Intake Note: pt is here for c/o cough and congestion Patient Tobacco Use Status: Former Tobacco user Allergies Penicillins [PENICILLINS] Allergy (Mild, Verified 08/22/23 13:06) RASH tetanus and diphtheria toxoids [TETANUS & DIPHTHERIA TOXOIDS] Allergy (Mild, Verified 08/22/23 13:06) UNKNOWN ranitidine [Zantac] Allergy (Unknown, Verified 08/22/23 13:06) hives Do you need a note to return to daycare/school/sports/work: Yes HPI HPI Comments History of Present Illness Details 83-year-old male history of diabetes chr onic AFib Eliquis he has seen the presents for re-evaluation. Patient was seen in the walk-in last week drug use with probable pneumonia discharged on prednisone and azithromycin. Patient states he feels the same as he did last week after the course of medications. He endorses productive cough chills wheezing. 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 Chronic systolic heart failure Ascending aorta dilatation Cardiomyopathy Microalbuminuria CAD (coronary artery disease) Chronic a-fib Atherosclerosis Depression Ureteral calculi CHF (congestive heart failure) Prostate CA Tremor Aneurysm of thoracic aorta Dyslipidemia Pulmonary embolism Diabetes HTN (hypertension) Surgical History Hx of cardiac cath History of rhinoplasty Family History Father Unknown family medical history Mother Unknown family medical history Sister Mental health disorder Social History Housing: House Alcohol intake: never Patient Tobacco Use Status: Former Tobacco user Years Smoked: 30 years ago e-Cigarette/Vaping Use: Never Used Second Hand Smoke Exposure: No service: No Current occupational status: retired Current occupational exposures/hazards: No Cognitive needs: No Hearing needs: No Vision needs: Yes Review of Systems Resp Reports chest congestion, Reports cough and Reports excessive phlegm production Physical Exam Vital Signs: Last Vital Signs Temp 97.9 F 08/22/23 13:05 Pulse 80 08/22/23 13:05 BP 110/70 08/22/23 13:05 Pulse Ox 97 08/22/23 13:05 BMI result Body Mass Index 30.4 Const General: healthy appearing, comfortable, no acute distress and alert Orientation/consciousness: patient oriented x3 Limitations: no limitations HEENT Head: Yes normal to inspection Ears: hearing grossly normal bilaterally Resp Other: Rhonchi heard in the right lower base Effort & Inspection: normal respiratory effort and able to speak in complete sentences Cardio Rate: regular rate Skin General skin exam: no rashes or lesions noted Neuro General: patient oriented x3 Extrem General: Yes normal to inspection Assessment & Plan Assessment & Plan (1) Pneumonia: Code(s): J18.9 - Pneumonia, unspecified organism Qualifiers: Pneumonia type: due to unspecified organism Laterality: unspecified laterality Lung location: unspecified part of lung Qualified Code(s): J18.9 - Pneumonia, unspecified organism Plan Chest x-ray on my interpretation shows no acute pathology. However given patient's age and risk factors s patient was initially prescribed azithromycin given level of assistance-reasonable short course of doxycycline superimposed pneumonia Discharge instructions, follow up and treatment are discussed with patient in my usual fashion. Alternatives in treatment are also discussed. The patient will return for worsening symptoms or as needed. Advised that any labs/imaging ordered will be followed up on and contact made if further treatment needed. Counseled that patient's condition may require further evaluation and/or treatment. Symptoms of concern for worsening disorder discussed in detail in my customary manner. Patient does verbalize understanding of the plan, there are no apparent barriers to communication. The patient is given the opportunity to ask questions and have them answered to his/her satisfaction Orders: Orders XR chest 2V Today R05.9 - Cough, unspecified Medications: New albuterol sulfate 90 mcg/actuation 2 puffs inhalation Q6H PRN 6.7 grams 0RF shortness of breath or wheezing doxycycline hyclate 100 mg PO BID 5 days 10 caps 0RF Refilled codeine-guaifenesin 10-100 mg/5 mL 5 mL PO Q6H PRN 120 mL 0RF allergy symptoms Coding Level of Care Code Est Pt Level 4 (93246) Diagnoses Pneumonia due to infectious organism, unspecified laterality, unspecified part of lung J18.9 Pneumonia type: due to unspecified organism Laterality: unspecified laterality Lung location: unspecified part of lung
== END 2023-08-22 14:04 | disposition home or self-care (01) ==
PROVIDERS: PCP Nurse Practitioner Family; Visit Provider Physician Assistant
DX: J18.9 Pneumonia, unspecified organism (principal)
CPT/HCPCS: 99214

== ENCOUNTER 2023-08-22 13:35 | Outpatient (REF) | payer MEDICARE, SELFPAY ==
--- NOTE | ~2023-08-22 | XR_ITS ---
EXAMINATION: XR CHEST CLINICAL INFORMATION: Cough. COMPARISON: None available. TECHNIQUE: 2 views of the chest were obtained. FINDINGS: No significant abnormality is noted involving the heart, lungs, mediastinum, bony thorax or soft tissues. XR/XR chest 2V IMPRESSION: Unremarkable chest exam
== END 2023-08-22 13:36 | disposition home or self-care (01) ==
LOC: HO.HMGCX 13:35
PROVIDERS: PCP Nurse Practitioner Family; Visit Provider Physician Assistant
DX: R50.9 Fever, unspecified (principal)
CPT/HCPCS: 71046

== ENCOUNTER 2023-10-09 12:38 | Outpatient (AMB) | payer MEDICARE, SELFPAY ==
--- NOTE | 2023-10-09 12:53 | A.OFFVIS_ITS ---
Intake Vital Signs 10/09/23 12:54 Height 5 ft 10 in Weight 200 lb 9.93 oz BMI 28.8 BP 90/50 L Blood Pressure Location Lt brachial Position Sitting Pulse 87 Intake Visit Reasons: 6 mth f/up Intake Note: 6 month follow up Account Adjuster Required: No Accompanied by: Self / Same As Patient Allergies Penicillins [PENICILLINS] Allergy (Mild, Verified 10/09/23 12:57) RASH tetanus and diphtheria toxoids [TETANUS & DIPHTHERIA TOXOIDS] Allergy (Mild, Verified 10/09/23 12:57) UNKNOWN ranitidine [Zantac] Allergy (Unknown, Verified 10/09/23 12:57) hives Medication List - Last Reconciled 10/09/23 by Nelson Pineda MD albuterol sulfate 90 mcg/actuation 2 puffs inhalation Q6H PRN apixaban (Eliquis) 5 mg PO BID atorvastatin 40 mg PO DAILY bicalutamide mg PO blood sugar diagnostic ([employer] Ultra Test strips) test blood sugar daily blood sugar diagnostic (OneTouch Ultra Test strips) Use to check blood sugar once a day or as needed for s/s hypo/hyperglycemia blood-glucose meter ([employer]Touch Ultra2 Meter) Use to check blood sugar once a day or as needed for s/s hypo/hyperglycemia cyanocobalamin (vitamin B-12) (Vitamin B-12) 1,000 mcg PO DAILY PRN diabetic supplies, [employer]. Diabetic Shoes DX: E11.9, E11.59 [extra depth Orthopedic shoes (1 pair) wt customized Heat-molded Multi-density Innersoles (3 Pairs) As directed] furosemide 20 mg PO DAILY lancets (OneTouch Delica Plus Lancet) Use to check blood sugar once a day or as needed for s/s hypo/hyperglycemia lancets (OneTouch UltraSoft Lancets) Check sugar once a day lisinopril 5 mg PO DAILY metformin 500 mg PO .PM 90 days metformin 1,000 mg PO .AM 90 days metoprolol succinate ER 50 mg PO .P.M 90 days metoprolol succinate ER 100 mg PO .am 90 days sertraline 25 mg PO DAILY 90 days tamsulosin 0.4 mg PO QPM HPI HPI Comments History of Present Illness Details Dion returns for follow-up regarding his various cardiac issues including atrial fibrillation, coronary disease, congestive heart failure. According to him, he is doing fine. No complaints like angina or shortness of breath or anything cardiac related. He is taking all his medications. [facility] Medical History (Reviewed 07/20/23 @ 17:28 by Jimmy Manzanares, 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 Chronic systolic heart failure Ascending aorta dilatation Cardiomyopathy Microalbuminuria CAD (coronary artery disease) Chronic a-fib Atherosclerosis Depression Ureteral calculi CHF (congestive heart failure) Prostate CA Tremor Aneurysm of thoracic aorta Dyslipidemia Pulmonary embolism Diabetes HTN (hypertension) Surgical History Hx of cardiac cath History of rhinoplasty Family History Father Unknown family medical history Mother Unknown family medical history Sister Mental health disorder Social History Housing: House Alcohol intake: never Patient Tobacco Use Status: Former Tobacco user Years Smoked: 30 years ago e-Cigarette/Vaping Use: Never Used Second Hand Smoke Exposure: No service: No Current occupational status: retired Current occupational exposures/hazards: No Cognitive needs: No Hearing needs: No Vision needs: Yes Review of Systems Const Denies weakness ENT Denies dizziness Card Denies chest pain, Denies chest pain with activity, Denies syncope, Denies rapid heart rate, Denies pedal edema, Denies edema, Denies leg edema, Denies lightheadedness, Denies palpitations, Denies dyspnea, Denies dyspnea on exertion and Denies orthopnea Resp Denies cough, Denies dyspnea and Denies dyspnea on exertion GI Denies hematochezia and Denies change in stool character Musc Denies abnormal gait, Denies muscle cramps, Denies muscle weakness, Denies numbness, Denies radiating pain into limb and Denies tingling Neuro Denies abnormal gait, Denies dizziness, Denies syncope, Denies numbness, Denies tingling and Denies weakness Endo Denies palpitations Physical Exam Vital Signs: Last Vital Signs Pulse 87 10/09/23 12:54 BP 90/50 L 10/09/23 12:54 BMI result Body Mass Index 28.8 Const General: comfortable and no acute distress Orientation/consciousness: patient oriented x3 HEENT Other: Unremarkable Head: Yes normal to inspection Neck Neck: Yes normal visual inspection Chest Chest palpation & inspection: normal inspection of the chest Resp Auscultation: clear to auscultation bilaterally Cardio Palpation: normal PMI Heart sounds: S1 normal heart sound present, S2 normal heart sound present, no gallops, no murmurs and no rubs GI Palpation (GI): Soft to palpation Back/Spine/Pelvis Other: unremarkable Skin General skin exam: no rashes or lesions noted Neuro General: patient oriented x3 Extrem General: Yes normal to inspection Psych Mental Status: mental status grossly normal Assessment & Plan Assessment & Plan (1) Persistent atrial fibrillation: Code(s): I48.19 - Other persistent atrial fibrillation Plan: Due to failed cardioversions in spite of using amiodarone, he remains on rate control. Continue beta-blockers. Continue Eliquis. (2) Atherosclerotic cardiovascular disease: Code(s): I25.10 - Atherosclerotic heart disease of [place] coronary artery without angina pectoris Plan: Myocardial perfusion imaging study from 2019 shows mixed ischemia/infarction pattern in the inferior wall. Previous stress MIBI from 2012 also showed inferior/inferoseptal ischemia. Cardiac catheterization with chronic total occlusion of right coronary artery and right PDA with collaterals. Nonobstructive disease in the LAD and circumflex. Clinically, he has got absolutely no angina. Continue beta-blockers and statins. Lipids are well controlled. Last LDL 75 mg/dL. Triglycerides 72 mg/dL. (3) Chronic diastolic (congestive) heart failure: Code(s): I50.32 - Chronic diastolic (congestive) heart failure Plan: Recent echocardiogram with LVEF of 42%. Basal inferior/inferolateral akinesis. Overall, similar to before. Clinically, he has got no heart failure symptoms or signs. May remain on diuretics. No changes. (4) Essential hypertension: Code(s): I10 - Essential (primary) hypertension Plan: On metoprolol, lisinopril. Take care blood pressures lowish today. Could be related to Flomax. (5) Type 2 diabetes mellitus with unspecified complications: Code(s): E11.8 - Type 2 diabetes mellitus with unspecified complications Plan: On metformin. Last hemoglobin A1c is 6.6%. Consider adding Jardiance or Farxiga if insurance approves. Coding Level of Care Code Est Pt Level 4 (18028) Diagnoses Persistent atrial fibrillation I48.19 Atherosclerotic cardiovascular disease I25.10 Chronic diastolic (congestive) heart failure I50.32 Essential hypertension I10 Type 2 diabetes mellitus with unspecified complications E11.8
[2023-10-09 12:54] VITALS: BP 90/50; PULSE 87; BMI 28.8
== END 2023-10-09 13:13 | disposition home or self-care (01) ==
PROVIDERS: PCP Nurse Practitioner Family; Visit Provider Internal Medicine
DX: I48.19 Other persistent atrial fibrillation (principal); I25.10 Atherosclerotic heart disease of native coronary artery without angina pectoris; I50.32 Chronic diastolic (congestive) heart failure; I10 Essential (primary) hypertension; E11.8 Type 2 diabetes mellitus with unspecified complications
CPT/HCPCS: 99214

== ENCOUNTER → 2023-10-09 12:38 | Outpatient (BNVA) | payer MEDICARE, SELFPAY | PROVIDERS: PCP Nurse Practitioner Family; Visit Provider Internal Medicine | DX: I25.10 Atherosclerotic heart disease of native coronary artery without angina pectoris (principal); I11.0 Hypertensive heart disease with heart failure; I50.32 Chronic diastolic (congestive) heart failure; I48.19 Other persistent atrial fibrillation; Z87.891 Personal history of nicotine dependence | CPT/HCPCS: 99212 ==

== ENCOUNTER 2023-10-20 08:01 | Outpatient (REF) | payer MEDICARE, SELFPAY ==
[2023-10-27 13:53] LABS: Testosterone, Total 433 ng/dL (250-1100)
== END 2023-10-20 08:02 | disposition home or self-care (01) ==
LOC: HO.HMGCLDS 08:01
PROVIDERS: PCP Nurse Practitioner Family; Visit Provider Physician Assistant Surgical
DX: C61 Malignant neoplasm of prostate (principal)
CPT/HCPCS: 36415; 84403

== ENCOUNTER 2023-11-27 07:31 | Outpatient (REF) | payer MEDICARE, SELFPAY ==
[2023-11-27 11:39] LABS: MANUAL DIFF FLAG NO
[2023-11-27 12:01] LABS: Basophils Absolute Auto 0.1 X10*3/uL (0.0-0.2); Basophils Percent Auto 0.9 % (0-2); Eosinophils Absolute Auto 0.2 X10*3/uL (0.0-0.4); Eosinophils Percent Auto 3.1 % (0-4); Hematocrit 34.8 % (42.0-52.0); Hemoglobin 11.2 g/dl (14.0-18.0); Imm Gran Abs Auto 0.02 X10*3/uL (0.00-0.03); Imm Gran Pct Auto 0.3 % (0.0-0.4); Lymphocytes Absolute Auto 1.9 X10*3/uL (1.2-4.9); Lymphocytes Percent Auto 27.5 % (20-40); Mean Corpuscular HGB Conc 32.2 g/dl (31.0-36.0); Mean Corpuscular Hemoglobin 28.5 pg (27.0-33.0); Mean Corpuscular Volume 88.5 fL (80.0-98.0); Mean Platelet Volume 9.7 fL (9.4-12.4); Monocytes Absolute Auto 0.7 X10*3/uL (0.1-1.2); Monocytes Percent Auto 9.7 % (2-11); Neutrophils Percent Auto 58.5 % (45-73); Platelet Count 318 X10*3/uL (160-400); Red Blood Count 3.93 X10*6/uL (4.60-5.80); Red Cell Distribution Width 14.9 % (11.0-16.0); White Blood Count 6.9 X10*3/uL (4.8-10.8)
[2023-11-27 12:12] LABS: Alanine Aminotransferase 17 U/L (0-40); Albumin Level 3.2 g/dL (3.5-5.0); Alkaline Phosphatase 105 U/L (39-117); Anion Gap 12 (12-20); Aspartate Amino Transferase 19 U/L (5-37); Bilirubin Total 0.4 mg/dL (0.0-1.0); Blood Urea Nitrogen 54 mg/dL (9-16); Calcium 8.8 mg/dL (8.4-10.2); Carbon Dioxide 23 mmol/L (22-29); Chloride 104 mmol/L (96-108); Cholesterol 115 mg/dL (<200); Estimated Glomerular Filt Rate 29; Glucose Fasting 121 mg/dL (60-99); HDL Cholesterol 33 mg/dL (>40); LDL Cholesterol Calculated 59 mg/dL (<100); Potassium 4.7 mmol/L (3.3-5.1); Sodium 134 mmol/L (135-145); Total Protein 6.8 g/dL (6.5-8.0); Triglycerides 116 mg/dL (<150)
[2023-11-27 12:33] LABS: TSH reflex Free T4 0.69 uIU/mL (0.32-4.0)
[2023-11-27 12:46] LABS: Folate 4.6 ng/mL (> or = 4.0); Vitamin B12 429 pg/mL (200-900)
== END 2023-11-27 07:32 | disposition home or self-care (01) ==
LOC: HO.HMGCLDS 07:31
PROVIDERS: PCP Nurse Practitioner Family; Visit Provider Nurse Practitioner Family
DX: I10 Essential (primary) hypertension (principal); E11.9 Type 2 diabetes mellitus without complications; E53.8 Deficiency of other specified B group vitamins
CPT/HCPCS: 36415; 80053; 80061; 82607; 82746; 84443; 85025

== ENCOUNTER 2023-11-29 09:14 | Outpatient (AMB) | payer MEDICARE, SELFPAY ==
--- NOTE | 2023-11-29 09:19 | MHC.PC.OV ---
Vital Signs 11/29/23 09:20 Height 5 ft 10 in Weight 191 lb 8 oz BMI 27.5 BP 122/68 Blood Pressure Location Lt brachial Position Sitting Intake Visit Reasons: 4 month fu Intake Note: Pt is here to follow up for his lab results Allergies Penicillins [PENICILLINS] Allergy (Mild, Verified 11/29/23 09:24) RASH tetanus and diphtheria toxoids [TETANUS & DIPHTHERIA TOXOIDS] Allergy (Mild, Verified 11/29/23 09:24) UNKNOWN ranitidine [Zantac] Allergy (Unknown, Verified 11/29/23 09:24) hives Medication List - Last Reconciled 11/29/23 by Jimmy Manzanares, [facility]- apixaban (Eliquis) 5 mg PO BID atorvastatin 40 mg PO DAILY bicalutamide mg PO BID blood sugar diagnostic ([employer] Ultra Test strips) test blood sugar daily blood sugar diagnostic (OneTouch Ultra Test strips) Use to check blood sugar once a day or as needed for s/s hypo/hyperglycemia blood-glucose meter ([employer] Ultra2 Meter) Use to check blood sugar once a day or as needed for s/s hypo/hyperglycemia cyanocobalamin (vitamin B-12) (Vitamin B-12) 1,000 mcg PO DAILY PRN diabetic supplies, [employer]. Diabetic Shoes DX: E11.9, E11.59 [extra depth Orthopedic shoes (1 pair) wt customized Heat-molded Multi-density Innersoles (3 Pairs) As directed] furosemide 20 mg PO DAILY lancets (OneTouch Delica Plus Lancet) Use to check blood sugar once a day or as needed for s/s hypo/hyperglycemia lancets (OneTouch UltraSoft Lancets) Check sugar once a day lisinopril 5 mg PO DAILY metformin 500 mg PO .PM 90 days metformin 1,000 mg PO .AM 90 days metoprolol succinate ER 50 mg PO .P.M 90 days metoprolol succinate ER 100 mg PO .am 90 days sertraline 25 mg PO DAILY 90 days tamsulosin 0.4 mg PO QPM Tobacco use date assessed: 11/29/23 Fall risk assessment: No Falls in past year Last assessed Fall Risk: 11/29/23 Dental Screening Dental Screen Date: 11/29/23 Did you have a dental visit in the last 12 months?: Yes Did you have a dental problem in the last 6 months where you did not have access to dental care?: No Was dental information given to patient?: Patient has dentist HPI 4 month fu HPI Details Pt is a diabetic, on an KIKI and a statin. A1C in office today is 8.8, though ? accuracy. Due for microalbumin. Denies polyuria, polydipsia, does report neuropathy. Pt denies any signs and symptoms of hypoglycemia and does know how to correct it. Pt reports that his blood sugar has been averaging around 130-140. Eye exam is up to date. Pt's creatinine was noted to be elevated. He used to see nephrology but has not gone back recently. Will repeat labs. Pt follows up with podiatry, cardiology, and urology. 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 Chronic systolic heart failure Ascending aorta dilatation Cardiomyopathy Microalbuminuria CAD (coronary artery disease) Chronic a-fib Atherosclerosis Depression Ureteral calculi CHF (congestive heart failure) Prostate CA Tremor Aneurysm of thoracic aorta Dyslipidemia Pulmonary embolism Diabetes HTN (hypertension) Surgical History Hx of cardiac cath History of rhinoplasty Family History Father Unknown family medical history Mother Unknown family medical history Sister Mental health disorder Social History Housing: House Alcohol intake: never Patient Tobacco Use Status: Former Tobacco user Years Smoked: 30 years ago e-Cigarette/Vaping Use: Never Used Second Hand Smoke Exposure: No service: No Current occupational status: retired Current occupational exposures/hazards: No Cognitive needs: No Hearing needs: No Vision needs: Yes Questionnaire PHQ-9 Over the last 2 weeks, how often have you been bothered by any of the following problems? 1. Little interest or pleasure in doing things: several days 2. Feeling down, depressed, or hopeless: not at all 3. Trouble falling or staying asleep, or sleeping too much: not at all 4. Feeling tired or having little energy: more than half the days 5. Poor appetite or overeating: not at all 6. Feeling bad about yourself - or that you are a failure or have let yourself or your family down: not at all 7. Trouble concentrating on things, such as reading the newspaper or watching television: not at all 8. Moving or speaking so slowly that other people could have noticed. Or the opposite - being so fidgety or restless that you have been moving around a lot more than usual: not at all 9. Thoughts that you would be better off or of hurting yourself in some way: not at all Total score: 3 Source: Developed by Drs. Vj Oliva, Claire Lozano, Alex Amaro and colleagues, with an educational marc from [employer]. Thrive Questionnaire Date Thrive assessed: 11/29/23 What is your living situation today?: I have a steady place to live Within the past 12 months, did the food you bought not last and you didn't have the money to get more?: Never true Within the past 12 months, did you worry whether your food would run out before you got money to buy more?: Never true Do you have trouble paying for medicines?: No Do you have trouble getting transportation to medical appointments?: No Do you have trouble paying your heating and electricity bill?: No Do you have trouble taking care of your child, family member or friend?: No Do you have trouble with day-to-day activities such as bathing, preparing meals, shopping, managing finances, etc.?: No Are you currently unemployed and looking for a job?: No Are you interested in more education?: No THRIVE Score: 0 AUDIT C Alcohol Use Questionnaire (AUDIT-C) 1. How often do you have a drink containing alcohol?: Never Total Score: 0 ALICIA-7 AMB Questionnaire ALICIA-7 Date ALICIA - 7 assessed: 11/29/23 Feeling nervous, anxious, or on edge: 0 = Not at all Not being able to stop or control worryin = Not at all Worrying too much about different things: 0 = Not at all Trouble relaxin = Not at all Being so restless that it is hard to sit still: 0 = Not at all Becoming easily annoyed or irritable: 0 = Not at all Feeling afraid as if something awful might happen: 0 = Not at all Total ALICIA-7 score (0-4 normal; 5-9 mild; 10-14 moderate; 15-21 severe): 0 Source: Developed by Drs. Vj Oliva, Claire Lozano, Alex Amaro and colleagues, with an educational marc from [employer]. Review of Systems Const Reports as per HPI Physical exam (Primary Care) Vital Signs: Last Vital Signs BP 122/68 11/29/23 09:20 BMI result Body Mass Index 27.5 Tobacco/Smoking Status: Tobacco use Status Tobacco use date assessed 11/29/23 11/29/23 09:32 Patient Tobacco Use Status Former Tobacco user 11/29/23 09:32 e-Cigarette/Vaping Use Never Used 11/29/23 09:32 PHQ-9: PHQ-9 Score PHQ-9: Total score 3 11/29/23 10:20 Thrive Assessment: Date of Thrive Assessment Date Thrive assessed 11/29/23 11/29/23 10:20 Const General: cooperative Orientation/consciousness: patient oriented x3 Resp Effort & Inspection: normal respiratory effort Auscultation: clear to auscultation bilaterally Cardio Rate: regular rate Rhythm: abnormal rhythm (afib) irregularly irregular Heart sounds: S1 normal heart sound present and S2 normal heart sound present Neuro General: patient oriented x3 Extrem Other: bilat feet: + sensation with use of monofilament, feet intact, onychomycosis noted bilat Psych Appearance: grossly normal Mental Status: mental status grossly normal Speech and movement: Normal speech and movement present Affect: normal affect Attitude: cooperative Thought process: Normal thought process present Thought content: Normal thought content present Insight: Good insight present (Psych) Judgement: Good judgement present (Psych) Results AMB Hemoglobin A1c AMB Hemoglobin A1c 8.8 % Last Edit by Jossy Olivera CMA on 11/29/23 10:03 Results Reviewed Results Reviewed: Laboratory Last Values Hgb A1c (Clinic) 8.8 % (4.0-6.0) H 11/29/23 10:00 Assessment and Plan Assessment & Plan (1) Elevated serum creatinine: Code(s): R79.89 - Other specified abnormal findings of blood chemistry Plan: Labs reordered (2) Type 2 diabetes mellitus with unspecified complications: Code(s): E11.8 - Type 2 diabetes mellitus with unspecified complications Plan: Microalbumin ordered (3) Diabetic neuropathy: Code(s): E11.40 - Type 2 diabetes mellitus with diabetic neuropathy, unspecified Plan: Stable (4) Anemia: Code(s): D64.9 - Anemia, unspecified Plan: labs ordered Plan The patient agreed to the use of a clinical medical assistant for this encounter. Scribed for ISA Palacio-CHONG by Nicole Bunch clinical medical assistant, on 11/29/2023 at 09:35 EST. Orders: Orders Comprehensive Met. Panel Today R79.89 - Other specified abnormal findings of blood chemistry AMB Hemoglobin A1c Today E11.8 - Type 2 diabetes mellitus with unspecified complications Microalbumin, Random (w Creat) Today E11.8 - Type 2 diabetes mellitus with unspecified complications Ferritin Today D64.9 - Anemia, unspecified IRON PROFILE Today D64.9 - Anemia, unspecified Coding Level of Care Code Est Pt Level 3 (98992) Diagnoses Elevated serum creatinine R79.89 Type 2 diabetes mellitus with unspecified complications E11.8 Diabetic neuropathy E11.40 Anemia D64.9
[2023-11-29 09:20] VITALS: BP 122/68; BMI 27.5
== END 2023-11-29 10:12 | disposition home or self-care (01) ==
PROVIDERS: PCP Nurse Practitioner Family; Visit Provider Nurse Practitioner Family
DX: R79.89 Other specified abnormal findings of blood chemistry (principal); E11.8 Type 2 diabetes mellitus with unspecified complications; E11.40 Type 2 diabetes mellitus with diabetic neuropathy, unspecified; D64.9 Anemia, unspecified
CPT/HCPCS: 83036; 99213

== ENCOUNTER 2023-11-29 10:14 | Outpatient (REF) | payer MEDICARE, SELFPAY ==
[2023-11-29 14:13] LABS: Alanine Aminotransferase 16 U/L (0-40); Albumin Level 3.3 g/dL (3.5-5.0); Anion Gap 15 (12-20); Aspartate Amino Transferase 15 U/L (5-37); Bilirubin Total 0.5 mg/dL (0.0-1.0); Blood Urea Nitrogen 51 mg/dL (9-16); Calcium 9.1 mg/dL (8.4-10.2); Carbon Dioxide 20 mmol/L (22-29); Chloride 104 mmol/L (96-108); Estimated Glomerular Filt Rate 28; Glucose Random 126 mg/dL (60-115); Iron 40 mcg/dL (45-160); Percent Iron Saturation 21 % (15-50); Potassium 5.5 mmol/L (3.3-5.1); Sodium 133 mmol/L (135-145); Total Iron Binding Capacity 189 mcg/dL (228-428); Total Protein 6.9 g/dL (6.5-8.0); Unsaturated Iron Binding 149 ug/dL
[2023-11-29 14:14] LABS: Alkaline Phosphatase 101 U/L (39-117)
[2023-11-29 14:32] LABS: Ferritin 216 ng/mL (20-250)
[2023-11-29 14:43] LABS: Creatinine Urine 67.07 mg/dL
[2023-11-29 15:04] LABS: Microalbum/Creatinine Ratio Ur 2248.3 ug/mg cr (<30)
== END 2023-11-29 10:15 | disposition home or self-care (01) ==
LOC: HO.HMGCLDS 10:14
PROVIDERS: PCP Nurse Practitioner Family; Visit Provider Nurse Practitioner Family
DX: R79.89 Other specified abnormal findings of blood chemistry (principal); D64.9 Anemia, unspecified; E11.8 Type 2 diabetes mellitus with unspecified complications
CPT/HCPCS: 36415; 80053; 82043; 82570; 82728; 83540

== ENCOUNTER 2023-11-30 09:02 | Emergency (ER) | payer MEDICARE, SELFPAY ==
--- NOTE | ~2023-11-30 | XR_ITS ---
EXAMINATION: XR CHEST CLINICAL INFORMATION: Weakness. COMPARISON: 08/22/2023 and 08/14/2023 TECHNIQUE: 2 views of the chest were obtained. FINDINGS: The lungs are well expanded. No focal consolidation. No pleural effusion. Cardiac silhouette and pulmonary vasculature appear prominent but unchanged from prior studies. XR/XR chest 2V IMPRESSION: No acute abnormality.
[2023-11-30 09:30] VITALS: BP 92/46; PULSE 86; RESP 12; TEMP 36.7; O2SAT 100; BMI 25.4
--- NOTE | 2023-11-30 09:33 | ECG_ITS ---
Test Reason : DEHYDRATION/RADHA Blood Pressure : / mmHG Vent. Rate : 078 BPM Atrial Rate : 000 BPM P-R Int : 000 ms QRS Dur : 090 ms QT Int : 394 ms P-R-T Axes : 000 039 143 degrees QTc Int : 449 ms Atrial fibrillation with premature ventricular or aberrantly conducted complexes Low voltage QRS Septal infarct , age undetermined Possible Lateral infarct , age undetermined Abnormal ECG When compared with ECG of 02-AUG-2019 14:09, Septal infarct is now Present Borderline criteria for Lateral infarct are now Present Nonspecific T wave abnormality no longer evident in Inferior leads Nonspecific T wave abnormality no longer evident in Anterior leads Referred By: Oskar Kenny Electronically Signed By:Roney Henry
--- NOTE | 2023-11-30 09:35 | ED_ITS ---
HPI - General Adult General Chief complaint: General Medical Stated complaint: dehydrated Time Seen by Provider: 11/30/23 09:20 History of Present Illness HPI narrative: The patient is an 83-year-old man who lives with his niece. He has a history of chronic atrial fibrillation and congestive heart failure. He had a primary care doctor's visit office yesterday and had routine blood work. Today he was contacted by the PCP office and was told that he was severely dehydrated with a high creatinine and was advised to come to the emergency room. His niece drove him to the hospital. The patient apparently has problems with urinary frequency and gets up several times every night to urinate. This is not a new problem. No fever, sweats, chills. No chest pain. No nausea or vomiting. It is unclear whether the patient has really had any change in his symptomatology recently. He is quite vague. Perhaps he has been were fatigued over the last couple of weeks. He sleeps poorly. Related Data Home Medications Medication Instructions Recorded Confirmed tamsulosin 0.4 mg capsule 0.4 mg PO QPM 01/24/22 11/29/23 cyanocobalamin (vitamin B-12) 1,000 mcg PO DAILY PRN 02/14/23 11/29/23 1,000 mcg tablet (Vitamin B-12) bicalutamide 50 mg tablet mg PO BID 11/29/23 11/29/23 Previous Rx's Medication Instructions Recorded extra depth Orthopedic shoes (1 #1 ea 10/14/21 pair) wt customized Heat-molded Multi-density Innersoles (3 Pairs) diabetic supplies, [employer]. #1 ea 12/17/21 lancets (OneTouch UltraSoft #100 ea 02/09/22 Lancets) blood sugar diagnostic (OneTouch #100 ea 02/15/23 Ultra Test strips) apixaban 5 mg tablet (Eliquis) 5 mg PO BID #180 tabs 04/04/23 furosemide 20 mg tablet 20 mg PO DAILY #90 tabs 04/04/23 lisinopril 5 mg tablet 5 mg PO DAILY #90 tabs 04/04/23 blood sugar diagnostic (OneTouch #100 ea 07/25/23 Ultra Test strips) blood-glucose meter (BionovoTouch #1 ea 07/25/23 Ultra2 Meter) lancets 33 gauge (OneTouch Delica #100 ea 07/25/23 Plus Lancet) atorvastatin 40 mg tablet 40 mg PO DAILY #90 tabs 10/02/23 metformin 1,000 mg tablet 1,000 mg PO .AM 90 days #90 tabs 10/02/23 metformin 500 mg tablet 500 mg PO .PM 90 days #90 tabs 10/02/23 metoprolol succinate 100 mg 100 mg PO .am 90 days #90 tabs 10/02/23 tablet,extended release 24 hr metoprolol succinate 50 mg 50 mg PO .P.M 90 days #90 tabs 10/02/23 tablet,extended release 24 hr sertraline 25 mg tablet 25 mg PO DAILY 90 days #90 tabs 10/11/23 apixaban 2.5 mg tablet 2.5 mg PO BID #60 tabs 11/30/23 Allergies Allergy/AdvReac Type Severity Reaction Status Date / Time Penicillins [PENICILLINS] Allergy Mild RASH Verified 11/29/23 09:24 tetanus and diphtheria Allergy Mild UNKNOWN Verified 11/29/23 09:24 toxoids [TETANUS & DIPHTHERIA TOXOIDS] ranitidine [Zantac] Allergy Unknown hives Verified 11/29/23 09:24 Review of Systems 2 Review of Systems: Yes all other systems are reviewed and are negative [facility] Past Medical History Medical History Pre-ulcerative calluses 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 Chronic systolic heart failure Ascending aorta dilatation Cardiomyopathy Microalbuminuria CAD (coronary artery disease) Chronic a-fib Atherosclerosis Depression Ureteral calculi CHF (congestive heart failure) Prostate CA Tremor Aneurysm of thoracic aorta Dyslipidemia Pulmonary embolism Diabetes HTN (hypertension) Surgical History Hx of cardiac cath History of rhinoplasty Family History Family History Father Unknown family medical history Mother Unknown family medical history Sister Mental health disorder Social History Social History Housing: House Alcohol intake: never Patient Tobacco Use Status: Former Tobacco user Years Smoked: 30 years ago Smoked in Last 30 Days: No e-Cigarette/Vaping Use: Never Used Second Hand Smoke Exposure: No Use of substances other than those prescribed or required for medical reasons: No Advance Directives: No Advance Directives Information Provided: Yes service: No Current occupational status: retired Current occupational exposures/hazards: No Cognitive needs: No Hearing needs: No Vision needs: Yes Physical Exam ED Vital Signs: Vital Signs - 24 hr 11/30/23 09:30 11/30/23 10:35 Temperature 98.0 F 97.5 F Pulse Rate 86 86 Respiratory Rate 12 12 Blood Pressure 92/46 L 97/51 L Pulse Oximetry 100 99 Oxygen Delivery Method Room Air Room Air BMI result Body Mass Index 25.4 Const Other: The patient is an 83-year-old male. He looks somewhat chronically ill but not obviously acutely ill. He was pleasant cooperative HENRI Other: The face is symmetrical. ?Mucous membranes moist. Eyes Other: Pupils are round equal, conjunctivae are clear, extraocular movements intact Neck Neck: Yes no JVD Resp Effort & Inspection: normal respiratory effort Auscultation: clear to auscultation bilaterally Cardio Other: The patient has not regular rate and rhythm. No definite murmur. GI Other: Abdomen is soft and nontender. Skin Other: Skin is pale and dry Neuro Other: The patient is awake and alert. He is oriented and appropriate. Cranial nerves are grossly intact. Moves his extremities symmetrically. He seems somewhat globally weak but has no focal findings. Extrem Other: No peripheral edema Medications Administered Discontinued Medications Generic Name Dose Route Start Last Admin Trade Name Freq PRN Reason Stop Dose Admin Sodium Chloride 500 mls @ 500 mls/hr 11/30/23 12:00 11/30/23 12:14 Ns IV 11/30/23 12:59 500 mls/hr .Q1H JACQUIE Administration Medical Decision Making Medical Decision Making MDM Narrative: The patient is a very pleasant 83-year-old male who was sent to the emergency room by his PCP's office because of worsening renal function. Yesterday he had outpatient labs that showed a creatinine of 2.24 and a BUN of 51. These values are a change from the patient's previous kidney function values but it has been sometime since the patient last had lab work done. In April of 2023 his BUN was 26 and his creatinine was 1.23. Therefore although today's values are significantly different from his values last April it is not clear over what period of time his renal function has deteriorated. He does not give a history of any acute illness recently or any symptoms that might indicate a change in his renal function. I suspect that these changes may be subacute. Clinically the patient looks well and does not seem to need hospitalization. I spoke to the patient's esol teacher assistant, Dr. Pemberton, with whom the patient has a new appointment in 2 weeks. The patient will stop his lisinopril. Dr. Pemberton will try to get an earlier appointment for the patient next week. Additionally I have asked the patient to reduce his dose of apixaban 2.5 mg b.i.d. and I have written a prescription for this new dose. Otherwise the patient looks well enough for discharge with his family. Lab Data 11/30/23 10:51 11/30/23 10:51 Labs: Lab Results 11/30/23 11/30/23 Range/Units 10:51 10:54 WBC 6.3 (4.8-10.8) X10*3/uL RBC 3.76 L (4.60-5.80) X10*6/uL Hgb 10.6 L (14.0-18.0) g/dl Hct 32.9 L (42.0-52.0) % MCV 87.5 (80.0-98.0) fL MCH 28.2 (27.0-33.0) pg MCHC 32.2 (31.0-36.0) g/dl RDW 15.1 (11.0-16.0) % Plt Count 284 (160-400) X10*3/uL MPV 9.0 L (9.4-12.4) fL Immature Gran % (Auto) 0.5 H (0.0-0.4) % Neut % (Auto) 63.2 (45-73) % Lymph % (Auto) 23.9 (20-40) % Bonner % (Auto) 9.7 (2-11) % Eos % (Auto) 2.1 (0-4) % Baso % (Auto) 0.6 (0-2) % Lymph # (Auto) 1.5 (1.2-4.9) X10*3/uL Bonner # (Auto) 0.6 (0.1-1.2) X10*3/uL Eos # (Auto) 0.1 (0.0-0.4) X10*3/uL Baso # (Auto) 0.0 (0.0-0.2) X10*3/uL Abs Immat Gran (auto) 0.03 (0.00-0.03) X10*3/uL Absolute Neuts (auto) 4.0 (2.0-8.3) x10*3/uL Absolute Nucleated RBC 0.000 (0.0-0.012) X10*3/uL Nucleated RBC % (auto) 0.0 (0.0-0.2) /100WBC VBG pH 7.34 (7.32-7.43) VBG pCO2 43 mmHg VBG pO2 31 mmHg VBG HCO3 23 (22-26) mmol/L VBG O2 Saturation 39.0 % VBG Base Excess -1.8 mmol/L Sodium 137 (135-145) mmol/L Potassium 5.5 H (3.3-5.1) mmol/L Chloride 108 (96-108) mmol/L Carbon Dioxide 22 (22-29) mmol/L Anion Gap 13 (12-20) BUN 50 H (9-16) mg/dL Creatinine 2.22 H (0.5-1.4) mg/dL Estim Creat Clear Calc 27.6 Estimated GFR 28 Random Glucose 111 (60-115) mg/dL Calcium 8.8 (8.4-10.2) mg/dL Magnesium 1.7 (1.6-2.6) mg/dL Total Bilirubin 0.4 (0.0-1.0) mg/dL Direct Bilirubin 0.2 (0.0-0.5) mg/dL AST 14 (5-37) U/L ALT 14 (0-40) U/L Alkaline Phosphatase 98 (39-117) U/L C-Reactive Protein 3.44 H (< or = 0.50) mg/dL B-Natriuretic Peptide 388 H (<100) pg/mL Total Protein 6.5 (6.5-8.0) g/dL Albumin 3.1 L (3.5-5.0) g/dL Urine Color Yellow Urine Appearance Cloudy Urine pH 6.0 (5.0-9.0) Ur Specific [place] 1.010 (1.005-1.025) Urine Protein 100 (2+) H (Neg-Trace) mg/dL Urine Glucose (UA) Negative (Negative) mg/dL Urine Ketones Negative (Negative) mg/dL Urine Blood Large (3+) H (Negative) Urine Nitrite Negative (Negative) Ur Leukocyte Esterase Large (3+) H (Negative) Urine RBC >20 H (0-2) /HPF Urine WBC >50 H (0-5) /HPF Ur Squamous Epith Cells 0-2 (0-2) /HPF Urine Bacteria Trace (None Seen) Hyaline Casts 0-2 (0-2) /LPF Discharge Plan Discharge Clinical Impression: Renal insufficiency Patient Disposition: Home, Self-Care Additional Instructions: Please stop your lisinopril. You may continue your other medications. Increase your water intake by at least a couple of glasses every day until you see the esol teacher assistant. Please call the nephrology office today to see if they have scheduled you for a new appointment next week. Additionally you will have to reduce your dose of Eliquis (apixaban). With your current kidney function you should be on a lower dose. I have sent a prescription for the lower dose of Eliquis to the pharmacy in [place]. Return to the emergency room if significantly worse. Prescriptions: New apixaban 2.5 mg tablet 2.5 mg PO BID Qty: 60 0RF No Action (DME) diabetic supplies, [employer]. [facility] See Rx Instructions .ROUTE .MEDSUPPLY Qty: 1 0RF Rx Instructions: Diabetic Shoes DX: E11.9, E11.59 (DME) lancets [OneTouch UltraSoft Lancets] [facility] See Rx Instructions .ROUTE .MEDSUPPLY Qty: 100 3RF Rx Instructions: Check sugar once a day (DME) OneTouch Ultra Test Strip See Rx Instructions .Route Qty: 100 1RF Rx Instructions: test blood sugar daily furosemide 20 mg tablet 20 mg PO DAILY Qty: 90 3RF lisinopril 5 mg tablet 5 mg PO DAILY Qty: 90 3RF Eliquis 5 mg tablet 5 mg PO BID Qty: 180 3RF (DME) lancets [OneTouch Delica Plus Lancet] 33 gauge [facility] See Rx Instructions .Route Qty: 100 3RF Rx Instructions: Use to check blood sugar once a day or as needed for s/s hypo/hyperglycemia (DME) blood-glucose meter [OneTouch Ultra2 Meter] [facility] See Rx Instructions .Route Qty: 1 0RF Rx Instructions: Use to check blood sugar once a day or as needed for s/s hypo/hyperglycemia (DME) OneTouch Ultra Test Strip See Rx Instructions .Route Qty: 100 0RF Rx Instructions: Use to check blood sugar once a day or as needed for s/s hypo/hyperglycemia atorvastatin 40 mg tablet 40 mg PO DAILY Qty: 90 3RF metoprolol succinate 50 mg tablet extended release 24 hr 50 mg PO .P.M 90 Days Qty: 90 3RF metoprolol succinate 100 mg tablet extended release 24 hr 100 mg PO .am 90 Days Qty: 90 3RF Rx Instructions: Take 100mg in am metformin 500 mg tablet 500 mg PO .PM 90 Days Qty: 90 1RF Rx Instructions: TAKEN IN COMBINATION with 1000mg in am metformin 1,000 mg tablet 1,000 mg PO .AM 90 Days Qty: 90 1RF Rx Instructions: TAKEN WITH 500MG AT PM sertraline 25 mg tablet 25 mg PO DAILY 90 Days Qty: 90 1RF (DME) extra depth Orthopedic shoes (1 pair) wth customized Heat-molded Multi- density Innersoles (3 Pairs) See Rx Instructions .Route .MEDSUPPLY Qty: 1 0RF Rx Instructions: As directed tamsulosin 0.4 mg capsule 0.4 mg PO QPM cyanocobalamin (vitamin B-12) [Vitamin B-12] 1,000 mcg tablet 1,000 mcg PO DAILY PRN bicalutamide 50 mg tablet PO BID Referrals: Romie Pemberton MD [Physician] - (Worsening renal function) Interventions: ED Discharge Assessment Last Done: 11/30/23 13:49 Discharge Date/Time: 11/30/23 13:50
[2023-11-30 10:35] VITALS: BP 97/51; PULSE 86; RESP 12; TEMP 36.4; O2SAT 99
[2023-11-30 10:58] LABS: MANUAL DIFF FLAG NO
[2023-11-30 10:59] LABS: Venous Blood Gas Refer to POC result
[2023-11-30 11:00] LABS: VBG Base Excess -1.8 mmol/L; VBG HCO3 23 mmol/L (22-26); VBG pCO2 43 mmHg; VBG pH 7.34 (7.32-7.43); VBG pO2 31 mmHg
[2023-11-30 11:02] LABS: Appearance Urine Cloudy; Color Urine Yellow; Glucose Urine UA Negative (Negative); Leukocyte Esterase Urine Large (3+) (Negative); Nitrite Urine Negative (Negative); UMIC TRIGGER UACC YES; Urine Blood Large (3+) (Negative); Urine Ketones Negative (Negative); Urine Protein 100 (2+) mg/dL (Neg-Trace)
[2023-11-30 11:12] LABS: Basophils Percent Auto 0.6 % (0-2); Eosinophils Absolute Auto 0.1 X10*3/uL (0.0-0.4); Eosinophils Percent Auto 2.1 % (0-4); Hematocrit 32.9 % (42.0-52.0); Hemoglobin 10.6 g/dl (14.0-18.0); Imm Gran Abs Auto 0.03 X10*3/uL (0.00-0.03); Imm Gran Pct Auto 0.5 % (0.0-0.4); Lymphocytes Absolute Auto 1.5 X10*3/uL (1.2-4.9); Lymphocytes Percent Auto 23.9 % (20-40); Mean Corpuscular HGB Conc 32.2 g/dl (31.0-36.0); Mean Corpuscular Hemoglobin 28.2 pg (27.0-33.0); Mean Corpuscular Volume 87.5 fL (80.0-98.0); Monocytes Absolute Auto 0.6 X10*3/uL (0.1-1.2); Monocytes Percent Auto 9.7 % (2-11); Neutrophils Percent Auto 63.2 % (45-73); Platelet Count 284 X10*3/uL (160-400); Red Blood Count 3.76 X10*6/uL (4.60-5.80); Red Cell Distribution Width 15.1 % (11.0-16.0); White Blood Count 6.3 X10*3/uL (4.8-10.8)
[2023-11-30 11:13] LABS: Alanine Aminotransferase 14 U/L (0-40); Albumin Level 3.1 g/dL (3.5-5.0); Alkaline Phosphatase 98 U/L (39-117); Anion Gap 13 (12-20); Aspartate Amino Transferase 14 U/L (5-37); Bilirubin Direct 0.2 mg/dL (0.0-0.5); Bilirubin Total 0.4 mg/dL (0.0-1.0); Blood Urea Nitrogen 50 mg/dL (9-16); C Reactive Protein 3.44 mg/dL (< or = 0.50); Calcium 8.8 mg/dL (8.4-10.2); Carbon Dioxide 22 mmol/L (22-29); Chloride 108 mmol/L (96-108); Creatinine Clr Calc Pharmacy 27.6; Estimated Glomerular Filt Rate 28; Glucose Random 111 mg/dL (60-115); Magnesium 1.7 mg/dL (1.6-2.6); Potassium 5.5 mmol/L (3.3-5.1); Sodium 137 mmol/L (135-145); Total Protein 6.5 g/dL (6.5-8.0)
[2023-11-30 11:18] LABS: B Type Natriuretic Peptide 388 pg/mL (<100)
[2023-11-30 11:33] LABS: Bacteria Urine Trace (None Seen); Hyaline Casts Urine 0-2 /LPF (0-2); RBC Urine >20 /HPF (0-2); Squamous Epithelial Cell Urine 0-2 /HPF (0-2); UACC Culture Trigger YES; WBC Urine >50 /HPF (0-5)
[2023-11-30] MEDS: 0.9 % Sodium Chloride 500 ML IV (12:14)
== END 2023-11-30 13:50 | disposition home or self-care (01) ==
PROVIDERS: Emergency Provider Emergency Medicine; PCP Nurse Practitioner Family
DX: N28.9 Disorder of kidney and ureter, unspecified (principal); E86.0 Dehydration; I48.91 Unspecified atrial fibrillation; I50.9 Heart failure, unspecified; R35.0 Frequency of micturition; Z79.899 Other long term (current) drug therapy; Z87.891 Personal history of nicotine dependence
CPT/HCPCS: 36415; 51798; 71046; 80048; 80076; 81001; 81003; 82803; 83735; 83880; 85025; 86140; 87086; 87088; 87186; 93005; 99283; 99285

== ENCOUNTER → 2023-11-30 09:33 | Outpatient (BNV) | payer MEDICARE, SELFPAY | PROVIDERS: Emergency Provider Emergency Medicine; PCP Nurse Practitioner Family; Visit Provider Internal Medicine Cardiovascular Disease | DX: I48.19 Other persistent atrial fibrillation (principal) | CPT/HCPCS: 93010 ==

== ENCOUNTER 2023-12-14 11:17 | Outpatient (REF) | payer MEDICARE, SELFPAY ==
[2023-12-14 13:53] LABS: Anion Gap 13 (12-20); Blood Urea Nitrogen 25 mg/dL (9-16); Carbon Dioxide 23 mmol/L (22-29); Chloride 106 mmol/L (96-108); Estimated Glomerular Filt Rate 45; Potassium 4.3 mmol/L (3.3-5.1); Sodium 138 mmol/L (135-145)
== END 2023-12-14 11:18 | disposition home or self-care (01) ==
LOC: HO.LAB 11:17
PROVIDERS: PCP Nurse Practitioner Family; Visit Provider Internal Medicine Hypertension Specialist
DX: I12.9 Hypertensive chronic kidney disease with stage 1 through stage 4 chronic kidney disease, or unspecified chronic kidney disease (principal); N18.30 Chronic kidney disease, stage 3 unspecified; E87.5 Hyperkalemia
CPT/HCPCS: 36415; 80051; 82310; 82565; 84520; 99202

== ENCOUNTER 2023-12-14 11:17 | Outpatient (AMB) | payer MEDICARE, SELFPAY ==
[2023-12-14 11:19] VITALS: BP 118/66; PULSE 87; O2SAT 99; BMI 27.8
--- NOTE | 2023-12-14 11:19 | HO.NEPHOV ---
HPI HPI Comments History of Present Illness Details . 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 Chronic systolic heart failure Ascending aorta dilatation Cardiomyopathy Microalbuminuria CAD (coronary artery disease) Chronic a-fib Atherosclerosis Depression Ureteral calculi CHF (congestive heart failure) Prostate CA Tremor Aneurysm of thoracic aorta Dyslipidemia Pulmonary embolism Diabetes HTN (hypertension) Surgical History Hx of cardiac cath History of rhinoplasty Family History Father Unknown family medical history Mother Unknown family medical history Sister Mental health disorder Social History Housing: House Alcohol intake: never Patient Tobacco Use Status: Former Tobacco user Years Smoked: 30 years ago e-Cigarette/Vaping Use: Never Used Second Hand Smoke Exposure: No service: No Current occupational status: retired Current occupational exposures/hazards: No Cognitive needs: No Hearing needs: No Vision needs: Yes Vital Signs 12/14/23 11:19 12/14/23 12:10 12/14/23 12:10 Height 5 ft 10 in Weight 194 lb BMI 27.8 BP 118/66 100/60 100/60 Blood Pressure Location Lt brachial Lt brachial Lt brachial Position Sitting Sitting Standing Pulse 87 Pulse Source Pulse Oximeter Pulse Oximetry (%) 99 Oxygen Delivery Method Room Air Physical Exam Vital Signs: Last Vital Signs Pulse 87 12/14/23 11:19 BP 118/66 12/14/23 11:19 Pulse Ox 99 12/14/23 11:19 Oxygen Delivery Method Room Air 12/14/23 11:19 BMI result Body Mass Index 27.8 Const General: comfortable Nutritional Appearance: well nourished Orientation/consciousness: patient oriented x3 HEENT Head: No normal to inspection Mouth: moist mucous membranes Neck Neck: Yes supple and Yes no JVD Resp Auscultation: clear to auscultation bilaterally, no rales and rub present Cardio Jugular venous distension: no JVD Palpation: no palpable S3 and no palpable S4 Heart sounds: no rubs GI Palpation (GI): Soft to palpation and nontender Percussion: No Fluid wave present General: Yes no CVA tenderness Back/Spine/Pelvis Back: no CVA tenderness Skin General skin exam: no rashes or lesions noted Neuro General: patient oriented x3 Extrem General: Yes no pedal edema and No clubbing Assessment & Plan Assessment & Plan (1) CKD (chronic kidney disease) stage 3, GFR 30-59 ml/min: Code(s): N18.30 - Chronic kidney disease, stage 3 unspecified (2) Essential hypertension: Code(s): I10 - Essential (primary) hypertension (3) Hyperkalemia: Code(s): E87.5 - Hyperkalemia Plan . Elderly man with RADHA super imposed on CKD and Hyperkalemia in a setting of Prostate CA Given this history, Urinary obstruction has to be ruled out Ordered renal sonogram Other possibilities include ATN. AGN seems unlikely AiN cannot be ruled out yet Anemia Iron levels were low Suggest Repeat Renal panel today If K remains elevated, would order [facility] Stay on low K diet- discussed Await sonogram Agree with holding ACEi Increase PO fluid intake Avoid hypotension Continue to avoid nephrotoxins including NSAIDS . Orders: Orders Blood Urea Nitrogen Today N18.30 - Chronic kidney disease, stage 3 unspecified Calcium Today N18.30 - Chronic kidney disease, stage 3 unspecified Electrolytes Today N18.30 - Chronic kidney disease, stage 3 unspecified Creatinine Today N18.30 - Chronic kidney disease, stage 3 unspecified US renal BI Today N18.30 - Chronic kidney disease, stage 3 unspecified Coding Level of Care Code New Pt Level 5 (83877) Diagnoses CKD (chronic kidney disease) stage 3, GFR 30-59 ml/min N18.30 Essential hypertension I10 Hyperkalemia E87.5 Results Reviewed Nephrology Results: Hgb 10.6 g/dl (14.0-18.0) L 11/30/23 WBC 6.3 X10*3/uL (4.8-10.8) 11/30/23 Plt Count 284 X10*3/uL (160-400) 11/30/23 Sodium 137 mmol/L (135-145) 11/30/23 Potassium 5.5 mmol/L (3.3-5.1) H 11/30/23 Chloride 108 mmol/L (96-108) 11/30/23 Carbon Dioxide 22 mmol/L (22-29) 11/30/23 BUN 50 mg/dL (9-16) H 11/30/23 Creatinine 2.22 mg/dL (0.5-1.4) H 11/30/23 Calcium 8.8 mg/dL (8.4-10.2) 11/30/23 Urine Protein 100 (2+) mg/dL (Neg-Trace) H 11/30/23 Urine Creatinine 67.07 mg/dL 11/29/23
[2023-12-14 12:10] VITALS: BP 100/60
== END 2023-12-14 11:57 | disposition home or self-care (01) ==
PROVIDERS: PCP Nurse Practitioner Family; Visit Provider Internal Medicine Hypertension Specialist
DX: I12.9 Hypertensive chronic kidney disease with stage 1 through stage 4 chronic kidney disease, or unspecified chronic kidney disease (principal); E87.5 Hyperkalemia
CPT/HCPCS: 99204

== ENCOUNTER 2024-01-02 10:26 | Outpatient (REF) | payer MEDICARE, SELFPAY ==
--- NOTE | ~2024-01-02 | US_ITS ---
EXAMINATION: US RETROPERITONEAL LIMITED (RENAL ONLY) CLINICAL INFORMATION: Chronic kidney disease. Stage III. COMPARISON: CT abdomen/pelvis 08/08/2015 TECHNIQUE: Real-time imaging of the kidneys. FINDINGS: RIGHT KIDNEY: 11.5 x 6.0 x 6.4 cm (SAG x AP x TRV). The kidney is normal in size, contour, and echogenicity. Renal cortical thickness is normal. No calculi. No hydronephrosis. Midpole cyst measures 3.3 x 2.2 x 2.3 cm with calcified septations. Lower pole cyst measures 5.4 x 3.7 x 5.4 cm with thick septations. Midpole parapelvic cyst measures 0.9 x 0.6 x 1.3 cm. LEFT KIDNEY: 11.0 x 5.2 x 6.1 cm (SAG x AP x TRV). The kidney is normal in size, contour, and echogenicity. Renal cortical thickness is normal. No calculi. No hydronephrosis. Upper pole cyst measures 5.5 x 5.2 x 5.9 cm. Upper pole cyst measures 2.2 x 1.8 x 1.5 cm. Upper pole cyst measures 1.3 x 1.5 x 1.7 cm with septations. US/US renal BI IMPRESSION: Bilateral complex septated renal cysts. Further characterization with MRI is recommended.
== END 2024-01-02 10:27 | disposition home or self-care (01) ==
LOC: HO.US 10:26
PROVIDERS: PCP Nurse Practitioner Family; Visit Provider Internal Medicine Hypertension Specialist
DX: N18.30 Chronic kidney disease, stage 3 unspecified (principal)
CPT/HCPCS: 76775

== ENCOUNTER 2024-01-11 11:51 | Outpatient (AMB) | payer MEDICARE, SELFPAY ==
[2024-01-11 11:52] VITALS: BP 118/62; PULSE 86; O2SAT 100; BMI 28.3
--- NOTE | 2024-01-11 11:52 | HO.NEPHOV ---
HPI HPI Comments History of Present Illness Details . Elderly man with a h/o long standing DM and HTN and CAD , CHF referred for CKD In April 2023, creatinine was 1.2 mg/dL As of Nov 2023, creatinine has been staying around 2.2 mg/dL with mild hyperkalemia of 5.5 He has been on Lisinopril 5 mg daily - This has been discontinued due to RADHA and High K No h/o of taking NSAIDS h/o Prostate CA s/p Radiation 5 years ago Being followed by and is currently on Bicalutamide- started about 3 months ago Has had difficulty urination ; No hematuria was noted Has not had renal sonogram recently 01/11/24: After stopping ACEi, BP i sbetter and creatinine has improved. 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 Chronic systolic heart failure Ascending aorta dilatation Cardiomyopathy Microalbuminuria CAD (coronary artery disease) Chronic a-fib Atherosclerosis Depression Ureteral calculi CHF (congestive heart failure) Prostate CA Tremor Aneurysm of thoracic aorta Dyslipidemia Pulmonary embolism Diabetes HTN (hypertension) Surgical History Hx of cardiac cath History of rhinoplasty Family History Father Unknown family medical history Mother Unknown family medical history Sister Mental health disorder Social History Housing: House Alcohol intake: never Patient Tobacco Use Status: Former Tobacco user Years Smoked: 30 years ago e-Cigarette/Vaping Use: Never Used Second Hand Smoke Exposure: No service: No Current occupational status: retired Current occupational exposures/hazards: No Cognitive needs: No Hearing needs: No Vision needs: Yes Vital Signs 01/11/24 11:52 Height 5 ft 10 in Weight 197 lb BMI 28.3 BP 118/62 Blood Pressure Location Lt brachial Position Sitting Pulse 86 Pulse Source Pulse Oximeter Pulse Oximetry (%) 100 Oxygen Delivery Method Room Air Physical Exam Vital Signs: Last Vital Signs Pulse 86 01/11/24 11:52 BP 118/62 01/11/24 11:52 Pulse Ox 100 01/11/24 11:52 Oxygen Delivery Method Room Air 01/11/24 11:52 BMI result Body Mass Index 28.3 Assessment & Plan Assessment & Plan (1) CKD (chronic kidney disease) stage 3, GFR 30-59 ml/min: Code(s): N18.30 - Chronic kidney disease, stage 3 unspecified (2) Essential hypertension: Code(s): I10 - Essential (primary) hypertension (3) Hyperkalemia: Code(s): E87.5 - Hyperkalemia (4) Type 2 diabetes mellitus with unspecified complications: Code(s): E11.8 - Type 2 diabetes mellitus with unspecified complications (5) Renal cyst: Code(s): N28.1 - Cyst of kidney, acquired Plan . Elderly man with RADHA super imposed on CKD and Hyperkalemia in a setting of Prostate CA Function has improved after discontinuation of KIKI inhibitor and optimizing blood pressure. He probably had hypoperfusion. Renal ultrasonogram did not reveal any evidence of obstruction. He has bilateral renal cyst. Cysts have been described as complex. However family states that he has had this cyst for quite some time and is being followed by Urology. I will defer further management of the cyst to urologist. He has nephrotic range proteinuria. He has a longstanding history of diabetes mellitus for more than 20 years and probably has underlying diabetic kidney disease. I will check basic serology including SPEP prior to his next visit to rule out other nondiabetic causes. Anemia Iron levels were low Hemoglobin is stable no indication for Epogen Hyperkalemia stance corrected after discontinuing KIKI inhibitor. No indication for Lokelma Stay on low K diet- discussed Continue to avoid nephrotoxins including NSAIDS History of hypertension Blood pressure is optimal at this time. No changes were made to his medications . Orders: Orders Comprehensive Met. Panel 4 Months I10 - Essential (primary) hypertension, N18.30 - Chronic kidney disease, stage 3 unspecified, N18.9 - Chronic kidney disease, unspecified Protein Electrophoresis, Serum 4 Months I10 - Essential (primary) hypertension, N18.30 - Chronic kidney disease, stage 3 unspecified Neutrophil Cytoplasma Ab 4 Months I10 - Essential (primary) hypertension, N18.30 - Chronic kidney disease, stage 3 unspecified Anti Glomerular Basement Memb 4 Months I10 - Essential (primary) hypertension, N18.30 - Chronic kidney disease, stage 3 unspecified Parathyroid Hormone Intact 4 Months I10 - Essential (primary) hypertension, N18.30 - Chronic kidney disease, stage 3 unspecified Coding Level of Care Code Est Pt Level 4 (39964) Diagnoses CKD (chronic kidney disease) stage 3, GFR 30-59 ml/min N18.30 Essential hypertension I10 Hyperkalemia E87.5 Type 2 diabetes mellitus with unspecified complications E11.8 Renal cyst N28.1 Results Reviewed Results Reviewed: Dec 2023: RIGHT KIDNEY: 11.5 x 6.0 x 6.4 cm (SAG x AP x TRV). The kidney is normal in size, contour, and echogenicity. Renal cortical thickness is normal. No calculi. No hydronephrosis. Midpole cyst measures 3.3 x 2.2 x 2.3 cm with calcified septations. Lower pole cyst measures 5.4 x 3.7 x 5.4 cm with thick septations. Midpole parapelvic cyst measures 0.9 x 0.6 x 1.3 cm. LEFT KIDNEY: 11.0 x 5.2 x 6.1 cm (SAG x AP x TRV). The kidney is normal in size, contour, and echogenicity. Renal cortical thickness is normal. No calculi. No hydronephrosis. Upper pole cyst measures 5.5 x 5.2 x 5.9 cm. Upper pole cyst measures 2.2 x 1.8 x 1.5 cm. Upper pole cyst measures 1.3 x 1.5 x 1.7 cm with septations. US/US renal BI IMPRESSION: Bilateral complex septated renal cysts. Further characterization with MRI is recommended. Nephrology Results: Hgb 10.6 g/dl (14.0-18.0) L 11/30/23 WBC 6.3 X10*3/uL (4.8-10.8) 11/30/23 Plt Count 284 X10*3/uL (160-400) 11/30/23 Sodium 138 mmol/L (135-145) 12/14/23 Potassium 4.3 mmol/L (3.3-5.1) 12/14/23 Chloride 106 mmol/L (96-108) 12/14/23 Carbon Dioxide 23 mmol/L (22-29) 12/14/23 BUN 25 mg/dL (9-16) H 12/14/23 Creatinine 1.50 mg/dL (0.5-1.4) H 12/14/23 Calcium 9.0 mg/dL (8.4-10.2) 12/14/23 Urine Protein 100 (2+) mg/dL (Neg-Trace) H 11/30/23 Urine Creatinine 67.07 mg/dL 11/29/23 Renal US 01/02/24
== END 2024-01-11 12:17 | disposition home or self-care (01) ==
PROVIDERS: PCP Nurse Practitioner Family; Visit Provider Internal Medicine Hypertension Specialist
DX: N18.30 Chronic kidney disease, stage 3 unspecified (principal); I10 Essential (primary) hypertension; E87.5 Hyperkalemia; E11.8 Type 2 diabetes mellitus with unspecified complications; N28.1 Cyst of kidney, acquired
CPT/HCPCS: 99214

== ENCOUNTER → 2024-01-11 11:51 | Outpatient (BNVA) | payer MEDICARE, SELFPAY | PROVIDERS: PCP Nurse Practitioner Family; Visit Provider Internal Medicine Hypertension Specialist | DX: E11.22 Type 2 diabetes mellitus with diabetic chronic kidney disease (principal); I12.9 Hypertensive chronic kidney disease with stage 1 through stage 4 chronic kidney disease, or unspecified chronic kidney disease; N18.30 Chronic kidney disease, stage 3 unspecified; E11.8 Type 2 diabetes mellitus with unspecified complications; N28.1 Cyst of kidney, acquired; E87.5 Hyperkalemia | CPT/HCPCS: 99212 ==

== ENCOUNTER 2024-01-23 11:59 | Outpatient (REF) | payer MEDICARE, SELFPAY ==
[2024-01-23 14:16] LABS: Prostate Specific Antigen 4.27 ng/mL (<0.05-4.0)
[2024-01-31 15:47] LABS: Testosterone, Total 274 ng/dL (250-1100)
== END 2024-01-23 12:00 | disposition home or self-care (01) ==
LOC: HO.HMGCLDS 11:59
PROVIDERS: PCP Nurse Practitioner Family; Visit Provider Urology
DX: C61 Malignant neoplasm of prostate (principal); Z12.5 Encounter for screening for malignant neoplasm of prostate
CPT/HCPCS: 36415; 84153; 84403

== ENCOUNTER 2024-03-06 12:32 | Emergency (ER) | payer MEDICARE, SELFPAY ==
--- NOTE | ~2024-03-06 | CT_ITS ---
EXAMINATION: CT HEAD WITHOUT CONTRAST CT CERVICAL SPINE WITHOUT CONTRAST CLINICAL INFORMATION: Head and neck trauma COMPARISON: None TECHNIQUE: Contiguous axial imaging was performed from the skull base to vertex without intravenous administration of contrast. Contiguous axial imaging was performed from the upper chest through the skull base without intravenous administration of contrast. Coronal and sagittal reformats were obtained at the acquisition workstation. This CT examination was performed using dose optimization techniques as appropriate, variously including the following: *Automated exposure control. *Adjustment of mA and/or kV according to patient size (this includes techniques or standardized protocols for targeted exams where dose is matched to indication/reason for exam; i.e. extremities or head). *Use of iterative reconstruction technique. DLP: 897 mGy-cm FINDINGS: Head: There is no evidence of acute intracranial hemorrhage or edematous territorial infarction. Velez-white matter differentiation is preserved. Ventricles and sulci are prominent due to global volume loss and there are patchy periventricular white matter changes as a sequela of microangiopathy. There is no hydrocephalus. No abnormal mass effect or midline shift. No extra-axial fluid collections. No acute soft tissue or osseous abnormalities. The mastoid air cells and visualized paranasal sinuses are clear. Cervical Spine: The atlantooccipital and atlantoaxial articulations remain well aligned. There is reversal of cervical lordosis with grade 1 anterior listhesis of C3 over C4, narrowing cough C4-C5 and C5-C6 intervertebral disc spaces as well as C6-C7 with marginal spurring. There are multiple sclerotic lesions are seen through the vertebral bodies, consider possibility of sclerotic metastasis. Evaluation of soft tissues revealed calcified thyroid nodules in the thyroid. There is right-sided posterior pleural effusion. CT/CT cervical spine wo IV con IMPRESSION: 1. No acute intracranial pathology. 2. Sequela of microangiopathy and global volume loss 3. Multilevel degenerative changes in the cervical spine with reversal of cervical lordosis and grade 1 anterolisthesis of C3 over C4. Narrowing of the C3-4, C4-C5, C5-C6. 4. Multiple small sclerotic lesions in the vertebral bodies, consider possibility of sclerotic metastasis. 5. Right-sided pleural effusion. 6. Calcified thyroid nodules.
[2024-03-06 13:33] VITALS: BP 115/67; PULSE 97; RESP 16; TEMP 36.5; O2SAT 100; BMI 26.9
--- NOTE | 2024-03-06 13:34 | ED_ITS ---
HPI - General Adult General Chief complaint: Fall Stated complaint: Fall today - lac back of head Time Seen by Provider: 03/06/24 16:49 Source: patient, RN notes reviewed and old records reviewed Mode of arrival: wheelchair Limitations: no limitations History of Present Illness HPI narrative: 84-year-old male presents for evaluation after a head injury. Patient reports that he was trying to walk up 2 steps that he lost his balance 1st he squatted down and then he fell backwards hitting the back of his head on the pavement There was no loss of consciousness The patient denies any pain He is on Eliquis for AFib Denies any pain to any extremities Related Data Home Medications ?Medication ?Instructions ?Recorded ?Confirmed tamsulosin 0.4 mg capsule 0.4 mg PO QPM 01/24/22 11/29/23 cyanocobalamin (vitamin B-12) 1,000 mcg PO DAILY PRN 02/14/23 11/29/23 1,000 mcg tablet (Vitamin B-12) bicalutamide 50 mg tablet mg PO BID 11/29/23 11/29/23 metformin 500 mg tablet 500 mg PO .night 12/14/23 metoprolol succinate 100 mg 100 mg PO BID 12/14/23 tablet,extended release 24 hr Previous Rx's ?Medication ?Instructions ?Recorded extra depth Orthopedic shoes (1 #1 ea 10/14/21 pair) [facility] customized Heat-molded Multi-density Innersoles (3 Pairs) diabetic supplies, miscellan. #1 ea 12/17/21 lancets (OneTouch UltraSoft #100 ea 02/09/22 Lancets) blood-glucose meter (OneTouch #1 ea 07/25/23 Ultra2 Meter) lancets 33 gauge (OneTouch Delica #100 ea 07/25/23 Plus Lancet) atorvastatin 40 mg tablet 40 mg PO DAILY #90 tabs 10/02/23 metoprolol succinate 50 mg 50 mg PO .P.M 90 days #90 tabs 10/02/23 tablet,extended release 24 hr sertraline 25 mg tablet 25 mg PO DAILY 90 days #90 tabs 10/11/23 apixaban 2.5 mg tablet 2.5 mg PO BID 90 days #180 tabs 12/20/23 blood sugar diagnostic (OneTouch #100 ea 01/21/24 Ultra Test strips) furosemide 20 mg tablet 20 mg PO DAILY #90 tabs 02/05/24 metformin 1,000 mg tablet 1,000 mg PO .AM 90 days #90 tabs 02/12/24 Allergies Allergy/AdvReac Type Severity Reaction Status Date / Time Penicillins [PENICILLINS] Allergy Mild RASH Verified 03/06/24 13:39 tetanus and diphtheria Allergy Mild UNKNOWN Verified 03/06/24 13:39 toxoids [TETANUS & DIPHTHERIA TOXOIDS] ranitidine [Zantac] Allergy Unknown hives Verified 03/06/24 13:39 Review of Systems Constitutional: Constitutional: Denies body ache(s), Denies chills, Denies frequent falls and Denies headache(s) Eyes: Eyes: Denies blurry vision ENT: Denies headache(s) Cardiovascular: Cardiovascular: Denies chest pain, Denies syncope and Denies dyspnea Respiratory: Respiratory: Denies cough and Denies dyspnea Gastrointestinal: Gastrointestinal: Denies abdominal pain, Denies nausea and Denies vomiting Musculoskeletal: Musculoskeletal: Denies back pain Integumentary/Breasts: Skin/Breast: Reports wounds Neurologic: Denies syncope, Denies frequent falls and Denies headache(s) [facility] Past Medical History Medical History Pre-ulcerative calluses 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 Chronic systolic heart failure Ascending aorta dilatation Cardiomyopathy Microalbuminuria CAD (coronary artery disease) Chronic a-fib Atherosclerosis Depression Ureteral calculi CHF (congestive heart failure) Prostate CA Tremor Aneurysm of thoracic aorta Dyslipidemia Pulmonary embolism Diabetes HTN (hypertension) Surgical History Hx of cardiac cath History of rhinoplasty Family History Family History Father Unknown family medical history Mother Unknown family medical history Sister Mental health disorder Social History Social History Housing: House Alcohol intake: never Patient Tobacco Use Status: Former Tobacco user Years Smoked: 30 years ago e-Cigarette/Vaping Use: Never Used Second Hand Smoke Exposure: No service: No Current occupational status: retired Current occupational exposures/hazards: No Cognitive needs: No Hearing needs: No Vision needs: Yes Physical Exam ED Vital Signs: Vital Signs - 24 hr 03/06/24 13:33 Temperature 97.7 F Pulse Rate 97 Respiratory Rate 16 Blood Pressure 115/67 Pulse Oximetry 100 Oxygen Delivery Method Room Air BMI result Body Mass Index 26.9 Const General: healthy appearing, comfortable, no acute distress, alert and awake Nutritional Appearance: well nourished Orientation/consciousness: patient oriented x3 HENMT Other: Small abrasion with edema to the posterior scalp. No active bleeding no deep wounds or lacerations Head: No normocephalic and No atraumatic Throat: Yes posterior oropharynx normal Eyes Eyelids: Yes eyelids normal Conjunctivae: conjunctivae normal Sclerae: sclerae normal Corneas: corneas normal Pupils: Equal, round and reactive pupils present EOM: EOMs intact bilaterally Neck Other: No C-spine tenderness Neck: Yes full ROM Resp Effort & Inspection: normal respiratory effort, able to speak in complete sentences and not labored GI Inspection: No distended Palpation (GI): Soft to palpation, not firm, nontender, no guarding and not rigid Skin General skin exam: elasticity normal Neuro General: patient oriented x3 Cranial nerves: Yes CN's II-XII intact bilaterally, Yes Equal, round and reactive pupils present and Yes Bilaterally intact EOM present Cognition (Neuro): normal cognition Extrem Other: Moving all extremities well without any obvious deformities Course Course Course Narrative: RME- 84 year old male presents for evaluation after a fall. He is on Eliquis for AFib. Apparently he was trying to climb a few steps when he was unable to. He reports squatting down due to weakness and then fell backwards and hit the back of his head. There is a small superficial abrasion, no lacerations. Denies any chest pain, lightheadedness, dizziness. Denies any headache or neck pain. Plan for CT scan of the brain and cervical spine. Patient and family feel comfortable being discharged if workup is negative Medical Decision Making Medical Decision Making MDM Narrative: Patient had a nonsyncopal fall witnessed by family. Plan for CT scan of the brain and cervical spine given the trauma. CT scan does not show any evidence traumatic injury. The patient uses a cane and walker at home. I discussed possible rehab consideration which was declined by patient and family. They all feel that he is safe at home. Plan for discharge Differential Diagnosis Differential Diagnoses: The differential diagnosis associated with the presentation includes Minor head injury Fall Cervical fracture Cervical strain Concussion Contusion Independent Interpretation I performed an independent interpretation of an: CT Scan Interpretation: No acute intracranial hemorrhage mass effect or midline shift Radiology Impression Discussion of test interpretation with radiology: I have reviewed the radiologist's reading. Radiologist Impression: IMPRESSION: 1. No acute intracranial pathology. 2. Sequela of microangiopathy and global volume loss 3. Multilevel degenerative changes in the cervical spine with reversal of cervical lordosis and grade 1 anterolisthesis of C3 over C4. Narrowing of the C3-4, C4-C5, C5-C6. 4. Multiple small sclerotic lesions in the vertebral bodies, consider possibility of sclerotic metastasis. 5. Right-sided pleural effusion. 6. Calcified thyroid nodules. Discharge Plan Discharge Clinical Impression: Fall, Minor head injury Patient Disposition: Home, Self-Care Instructions: Head Injury (ED) Additional Instructions: Your CT scans did not show any evidence of traumatic injury You may continue taking all your medications as prescribed Follow-up your primary doctor Return for new or worsening symptoms Prescriptions: No Action (DME) diabetic supplies, miscellan. [facility] See Rx Instructions .ROUTE .MEDSUPPLY Qty: 1 0RF Rx Instructions: Diabetic Shoes DX: E11.9, E11.59 (DME) lancets [OneTouch UltraSoft Lancets] [facility] See Rx Instructions .ROUTE .MEDSUPPLY Qty: 100 3RF Rx Instructions: Check sugar once a day (DME) lancets [OneTouch Delica Plus Lancet] 33 gauge [facility] See Rx Instructions .Route Qty: 100 3RF Rx Instructions: Use to check blood sugar once a day or as needed for s/s hypo/hyperglycemia (DME) blood-glucose meter [OneTouch Ultra2 Meter] [facility] See Rx Instructions .Route Qty: 1 0RF Rx Instructions: Use to check blood sugar once a day or as needed for s/s hypo/hyperglycemia atorvastatin 40 mg tablet 40 mg PO DAILY Qty: 90 3RF metoprolol succinate 50 mg tablet extended release 24 hr 50 mg PO .P.M 90 Days Qty: 90 3RF sertraline 25 mg tablet 25 mg PO DAILY 90 Days Qty: 90 1RF apixaban 2.5 mg tablet 2.5 mg PO BID 90 Days Qty: 180 3RF (DME) OneTouch Ultra Test Strip See Rx Instructions .Route Qty: 100 0RF Rx Instructions: Use to check blood sugar once a day or as needed for s/s hypo/hyperglycemia furosemide 20 mg tablet 20 mg PO DAILY Qty: 90 3RF metformin 1,000 mg tablet 1,000 mg PO .AM 90 Days Qty: 90 1RF Rx Instructions: TAKEN WITH 500MG AT PM (DME) extra depth Orthopedic shoes (1 pair) wth customized Heat-molded Multi- density Innersoles (3 Pairs) See Rx Instructions .Route .MEDSUPPLY Qty: 1 0RF Rx Instructions: As directed tamsulosin 0.4 mg capsule 0.4 mg PO QPM cyanocobalamin (vitamin B-12) [Vitamin B-12] 1,000 mcg tablet 1,000 mcg PO DAILY PRN metoprolol succinate 100 mg tablet extended release 24 hr 100 mg PO BID Rx Instructions: Take 100mg in am metformin 500 mg tablet 500 mg PO .night Rx Instructions: TAKEN IN COMBINATION with 1000mg in am bicalutamide 50 mg tablet PO BID Print Language: Congolese
[2024-03-06 16:53] VITALS: BP 118/72; PULSE 91; RESP 16; TEMP 35.8; O2SAT 100
== END 2024-03-06 16:57 | disposition home or self-care (01) ==
LOC: HO.ED 16:56
PROVIDERS: Emergency Provider Emergency Medicine; PCP Nurse Practitioner Family
DX: S00.03XA Contusion of scalp, initial encounter (principal); S00.01XA Abrasion of scalp, initial encounter; W10.8XXA Fall (on) (from) other stairs and steps, initial encounter; E11.9 Type 2 diabetes mellitus without complications; I11.0 Hypertensive heart disease with heart failure; I50.9 Heart failure, unspecified; E78.5 Hyperlipidemia, unspecified; I48.91 Unspecified atrial fibrillation; Z79.01 Long term (current) use of anticoagulants; Z79.4 Long term (current) use of insulin; Z79.02 Long term (current) use of antithrombotics/antiplatelets; Z87.891 Personal history of nicotine dependence; Y93.9 Activity, unspecified; Y92.9 Unspecified place or not applicable; Y99.9 Unspecified external cause status
CPT/HCPCS: 70450; 72125; 99282; 99284

== ENCOUNTER 2024-03-25 14:14 | Outpatient (AMB) | payer MEDICARE, SELFPAY ==
[2024-03-25 14:23] VITALS: BP 110/68; PULSE 54; O2SAT 96; BMI 24.3
--- NOTE | 2024-03-25 14:23 | MHC.PC.OV ---
Vital Signs 03/25/24 14:23 Height 6 ft Weight 179 lb BMI 24.3 BP 110/68 Blood Pressure Location Lt brachial Position Sitting Pulse 54 Pulse Source Pulse Oximeter Pulse Oximetry (%) 96 Oxygen Delivery Method Room Air Intake Visit Reasons: Discuss Hospice Intake Note: Patient here to discuss hospice care Allergies Penicillins [PENICILLINS] Allergy (Mild, Verified 03/25/24 14:23) RASH tetanus and diphtheria toxoids [TETANUS & DIPHTHERIA TOXOIDS] Allergy (Mild, Verified 03/25/24 14:23) UNKNOWN ranitidine [Zantac] Allergy (Unknown, Verified 03/25/24 14:23) hives Medication List - Last Reconciled 03/25/24 by Jimmy Manzanares, MERCHANDISE PRESENTATION MANAGER- apixaban 2.5 mg PO BID 90 days atorvastatin 40 mg PO DAILY bicalutamide mg PO BID blood sugar diagnostic ([employer] Ultra Test strips) Use to check blood sugar once a day or as needed for s/s hypo/hyperglycemia blood-glucose meter ([employer] Ultra2 Meter) Use to check blood sugar once a day or as needed for s/s hypo/hyperglycemia diabetic supplies, miscellan. Diabetic Shoes DX: E11.9, E11.59 [extra depth Orthopedic shoes (1 pair) wt customized Heat-molded Multi-density Innersoles (3 Pairs) As directed] furosemide 20 mg PO DAILY lancets (OneTouch Delica Plus Lancet) Use to check blood sugar once a day or as needed for s/s hypo/hyperglycemia lancets (OneTouch UltraSoft Lancets) Check sugar once a day metformin 500 mg orally 2 tabs am, 1 tab pm; TAKEN IN COMBINATION with 1000mg in am and 500mg PM 90 days metoprolol succinate ER 50 mg PO .P.M 90 days metoprolol succinate ER 100 mg PO BID sertraline 25 mg PO DAILY 90 days Tobacco use date assessed: 11/29/23 Fall risk assessment: 2 + Falls in past year Last assessed Fall Risk: 03/25/24 Dental Screening Dental Screen Date: 11/29/23 HPI Discuss Hospice HPI Details Pt's and his family are interested in hospice services for the pt. Pt reports some weakness. He has fallen multiple times. Pt also has a hx of kidney failure. Pt reports that he would appreciate an evaluation. Will place referral for VNA/hospice. Denies fever, chills, and dizziness. 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 Chronic systolic heart failure Ascending aorta dilatation Cardiomyopathy Microalbuminuria CAD (coronary artery disease) Chronic a-fib Atherosclerosis Depression Ureteral calculi CHF (congestive heart failure) Prostate CA Tremor Aneurysm of thoracic aorta Dyslipidemia Pulmonary embolism Diabetes HTN (hypertension) Surgical History Hx of cardiac cath History of rhinoplasty Family History Father Unknown family medical history Mother Unknown family medical history Sister Mental health disorder Social History Housing: House Alcohol intake: never Patient Tobacco Use Status: Former Tobacco user Years Smoked: 30 years ago e-Cigarette/Vaping Use: Never Used Second Hand Smoke Exposure: No service: No Current occupational status: retired Current occupational exposures/hazards: No Cognitive needs: No Hearing needs: No Vision needs: Yes Questionnaire Thrive Questionnaire Date Thrive assessed: 11/29/23 ALICIA-7 AMB Questionnaire ALICIA-7 Date ALICIA - 7 assessed: 11/29/23 Source: Developed by Drs. Vj Oliva, Claire Lozano, Alex Amaro and colleagues, with an educational marc from [employer]. Review of Systems Const Reports as per HPI Physical exam (Primary Care) Vital Signs: Last Vital Signs Pulse 54 03/25/24 14:23 BP 110/68 03/25/24 14:23 Pulse Ox 96 03/25/24 14:23 Oxygen Delivery Method Room Air 03/25/24 14:23 BMI result Body Mass Index 24.3 Tobacco/Smoking Status: Tobacco use Status Tobacco use date assessed 11/29/23 03/25/24 14:27 Patient Tobacco Use Status Former Tobacco user 03/25/24 14:27 e-Cigarette/Vaping Use Never Used 03/25/24 14:27 Thrive Assessment: Date of Thrive Assessment Date Thrive assessed 11/29/23 03/25/24 14:27 Const General: cooperative Orientation/consciousness: patient oriented x3 Limitations: wheelchair Resp Other: lungs fairly clear, very faint crackles to left base Effort & Inspection: normal respiratory effort Cardio Rate: regular rate Rhythm: abnormal rhythm irregularly irregular Heart sounds: S1 normal heart sound present and S2 normal heart sound present Neuro General: patient oriented x3 Extrem Other: +1-2 edema to LLE, +1 to RLE Psych Appearance: grossly normal Speech and movement: Normal speech and movement present Affect: normal affect Attitude: cooperative Assessment and Plan Assessment & Plan (1) Kidney failure: Code(s): N19 - Unspecified kidney failure Plan: Referred to VNA/hospice (2) Weakness: Code(s): R53.1 - Weakness Plan: Referred to VNA/hospice Plan The patient agreed to the use of a emergency medicine medical director for this encounter. Scribed for JEZ Palacio by Nicole Bunch emergency medicine medical director, on 03/25/2024 at 14:50 EST. Orders: Orders Comprehensive Met. Panel Today R53.1 - Weakness UA CC w/rflx Micro + Cult Today R53.1 - Weakness Complete Blood Count Auto Diff Today R53.1 - Weakness TSH reflex Free T4 Today R53.1 - Weakness Referrals [facility] Referral N19 - Unspecified kidney failure, R53.1 - Weakness Medications: Changed From metformin TAKEN IN COMBINATION with 1000mg in am 500 mg PO .night 30 days 90 tabs 2RF To metformin TAKEN IN COMBINATION with 1000mg in am and 500mg PM 500 mg PO .night 30 days 90 tabs 2RF From metformin TAKEN IN COMBINATION with 1000mg in am and 500mg PM 500 mg PO .night 30 days 90 tabs 2RF To metformin 500 mg orally 2 tabs am, 1 tab pm; TAKEN IN COMBINATION with 1000mg in am and 500mg PM 270 tabs 2RF 90 days Refilled apixaban 2.5 mg PO BID 180 tabs 3RF 90 days Discontinued metformin TAKEN WITH 500MG AT PM Discontinued Reason: Doctor's Order 1,000 mg PO .AM 90 days 90 tabs 1RF Coding Level of Care Code Est Pt Level 3 (56770) Diagnoses Kidney failure N19 Weakness R53.1
== END 2024-03-25 16:12 | disposition home or self-care (01) ==
PROVIDERS: PCP Nurse Practitioner Family; Visit Provider Nurse Practitioner Family
DX: N19 Unspecified kidney failure (principal); R53.1 Weakness
CPT/HCPCS: 99213